=== PATIENT | female | born 1980 | race Caucasian/White ===

== ENCOUNTER 2020-02-01 17:03 | Emergency (ER) | payer BC, SELFPAY ==
--- NOTE | ~2020-02-01 | XR_ITS ---
EXAMINATION: XR foot RT min 3V DATE: 02/01/2020 17:19 INDICATION: Posttraumatic bruising and swelling at the right fifth toe TECHNIQUE: Dorsoplantar, two oblique and lateral views of the right foot were obtained. COMPARISON: None. FINDINGS: Nondisplaced oblique extra-articular fracture at the medial base of the developmentally fused right f ifth middle and distal phalanges. No fracture gap or incongruity at the articular surface. Alignment remains essentially anatomic. No other fractures identified. Joint spaces are normal. Small Achilles calcaneal spur. IMPRESSION: 1. Nondisplaced intra-articular fracture at the base of the developmentally fused right fifth middle and distal phalanges. Reviewed, dictated and finalized at location A. IMPRESSION: 1. Nondisplaced intra-articular fracture at the base of the developmentally fus ed right fifth middle and distal phalanges.
[2020-02-01 17:07] VITALS: BP 128/74; PULSE 65; RESP 20; TEMP 36.8; O2SAT 97
--- NOTE | 2020-02-01 17:08 | ED.LOWEXIN ---
HPI - Extremity Injury (Lower) General Chief Complaint: Extremity Injury, Lower Stated Complaint: foot injury Time Seen by Provider: 02/01/20 17:04 Source: RN notes reviewed History of Present Illness HPI Narrative: Patient presents emergency department from home for right toe pain. Patient states that 2 days ago she struck her right toe on a stool causing the right fifth toe to bend awkwardly. She states that since that time she is had pain and swelling to this toe with bruising noted. States pain is at the base of the fourth and fifth toe on the right denies any other trauma or injury. States she last took pain medication yesterday denies any numbness or tingling Related Data Allergies Allergy/AdvReac Type Severity Reaction Status Date / Time No Known Allergies Allergy Verified 02/01/20 17:09 Review of Systems Review of Systems: Narrative: Gen.: Denies fevers or chills Musculoskeletal: See HPI Neuro: Denies numbness, tingling, weakness Skin: Denies rash Endo: Denies DM PMFSH Past Medical History Medical History UTI (urinary tract infection) Social History Social History Smoking status: Never smoker Gender identity (if verbalized by the patient): Female Exam Narrative: Exam Narrative: APPEARANCE: No acute distress, nontoxic, resting in bed Eyes: EOMI HEENT: Normocephalic, atraumatic, RESPIRATORY: No respiratory distress MUSCULOSKELETAl: Tender to palpation over the right fifth toe and at the base of the right fifth and fourth digit with ecchymosis present remainder the foot is nontender palpation dorsalis pedis pulse 2+, neurovascular tach NEURO: Awake and alert. Following commands, speech normal, no focal deficits SKIN:: Warm, dry. Normal Color no rash or lesions Course Course Emergency Course: Discussed with patient results of workup and diagnosis. Discussed need for follow-up with primary care, proper use of medication, and reasons to return to the emergency department. Patient understands and agrees to current treatment plan Vital Signs Vital signs: Vital Signs Temperature 98.2 F 02/01/20 17:07 Pulse Rate 65 02/01/20 17:07 Respiratory Rate 20 02/01/20 17:07 Blood Pressure 128/74 02/01/20 17:07 Pulse Oximetry 97 02/01/20 17:07 Temperature 98.2 F 02/01/20 17:07 Pulse Rate 65 02/01/20 17:07 Respiratory Rate 20 02/01/20 17:07 Blood Pressure 128/74 02/01/20 17:07 Pulse Oximetry 97 02/01/20 17:07 MDM - Extremity Injury (Lower) Imaging Data Radiologist's impression: ITS Impressions Foot X-Ray 02/01/20 17:23 IMPRESSION: 1. Nondisplaced intra-articular fracture at the base of the developmentally fused right fifth middle and distal phalanges. Discharge Plan Discharge Clinical Impression: Closed fracture of phalanx of right fifth toe Patient Disposition: Home, Self-Care Condition: Stable Instructions: Antibiotic Form, Toe Fracture (ED) Additional Instructions: Return for increasing pain numbness or tingling in the extremities or any other symptoms of concern Prescriptions: New ibuprofen [IBU] 600 mg tablet 600 mg PO Q6H PRN (Reason: pain) Qty: 20 RF: 0 No Action ondansetron 4 mg tablet,disintegrating 4 mg PO Q6H PRN (Reason: nausea and vomiting) Qty: 10 RF: 0 naproxen 500 mg tablet 500 mg PO BID PRN (Reason: pain) Qty: 20 RF: 0 sulfamethoxazole-trimethoprim [Bactrim DS] 800-160 mg tablet 1 tablet PO Q12H 3 Days Qty: 6 RF: 0 phenazopyridine [Pyridium] 200 mg tablet 200 mg PO TID PRN (Reason: pain) Qty: 6 RF: 0 ondansetron 4 mg tablet,disintegrating 4 mg PO Q6H PRN (Reason: nausea and vomiting) Qty: 7 RF: 0 Follow-up/Referrals: Jordyn,Jessica Shultz MD [Primary Care Provider] - 2 Days Time of Disposition: 17:37
== END 2020-02-01 17:47 | disposition home or self-care (01) ==
PROVIDERS: Emergency Provider Emergency Medicine; PCP Family Medicine
DX: S92.534A Nondisplaced fracture of distal phalanx of right lesser toe(s), initial encounter for closed fracture (principal); S92.524A Nondisplaced fracture of middle phalanx of right lesser toe(s), initial encounter for closed fracture; W22.03XA Walked into furniture, initial encounter
CPT/HCPCS: 73630; 99284

== ENCOUNTER 2020-07-12 09:28 | Emergency (ER) | payer BC, SELFPAY ==
--- NOTE | ~2020-07-12 | CT_ITS ---
EXAMINATION: CT soft tissue neck w con DATE: 07/12/2020 13:05 INDICATION: Neck swelling TECHNIQUE: Computed tomography (CT) of the neck was performed with 75 mL Omnipaque-350 intravenous co ntrast. Automated exposure control and iterative reconstruction technique were employed. The dose-kam gth product was 479.87 mGy-cm. COMPARISON: None FINDINGS: Likely benign 4 mm hypodense right thyroid nodule. Submandibular and parotid glands are symmetric. T here is mild stranding in the subcutaneous fat in the submental region with 3 mildly prominent submen alex lymph nodes the largest measuring 10 mm in maximal short axis diameter. Additional mildly promine nt bilateral level 2 jugular chain lymph nodes measuring up to 10 mm in maximal short axis diameter o n the right and 9 mm on the left. No abscess or masses identified. The palatine and lingual tonsils a nd epiglottis appear normal. The deep spaces of the head and neck including the retropharyngeal space appear normal. The vasculature is patent and normal in caliber. Orbits are unremarkable. Superior me diastinum is unremarkable. Paranasal sinuses, middle ear cavities, mastoid air cells and visualized p ortions of the airway and bilateral upper lobes are clear. There are several dental restorations. No periapical erosions. Bones are unremarkable. IMPRESSION: 1. Minimal nonspecific stranding consistent with cellulitis in the overlying submental subcutaneous f at. No abscess. 2. Mild likely reactive submental and bilateral level 2 jugular chain lymphadenopathy Reviewed, dictated and finalized at location A. PAINTER IMPRESSION: 1. Minimal nonspecific stranding consistent with cellulitis in the overlying luong bmental subcutaneous fat. No abscess. 2. Mild likely reactive submental and bilateral level 2 jugular chain lymphaden opathy
[2020-07-12 09:46] VITALS: BP 134/81; PULSE 77; RESP 18; TEMP 36.4; O2SAT 100
[2020-07-12] MEDS: SODIUM CHLORIDE 0.9% IV 1,000 ML 999 ML IV CONT (11:04)
[2020-07-12] MEDS: IBUPROFEN IV 800 MG/200 ML 800 MG/200 ML BAG 400 MG IVPB (11:05)
--- NOTE | 2020-07-12 11:14 | ED.GENADULT ---
HPI - General Adult General Chief complaint: Unspecified Stated complaint: lump in throat Time Seen by Provider: 07/12/20 10:06 Source: patient Mode of arrival: ambulatory Limitations: no limitations History of Present Illness HPI narrative: Patient is a 40-year-old female who presents to emergency department for evaluation of submental swelling and pain that began over the last day patient notes that it increased drastically over the night but notes aching pain worse with touch denies any intraoral infections or pain or discomfort or any URI symptoms or similar occurrence in the past presents in no distress does not appear uncomfortable and has not taken anything for symptoms Related Data Home Medications Medication Instructions Recorded Confirmed alprazolam 07/12/20 Allergies Allergy/AdvReac Type Severity Reaction Status Date / Time No Known Allergies Allergy Verified 07/12/20 09:52 Review of Systems Review of Systems: All systems reviewed & are unremarkable except as noted in HPI and below PMFSH Past Medical History Medical History UTI (urinary tract infection) Surgical History Surgical History H/O tubal ligation History of endometrial ablation Hx of cholecystectomy Social History Social History Smoking status: Never smoker Gender identity (if verbalized by the patient): Female Exam Narrative: Exam Narrative: GENERAL: Well-appearing, well-nourished, and in no acute distress. HEAD: Normocephalic, atraumatic. Patient with firm tender area in the submental left side region there is no fluctuance no erythema and no wounds EYES: PERRLA and EOMI. ENT: Nares clear, no rhinorrhea or epistaxis. Mucous membranes moist. Oropharynx without tonsillar hypertrophy exudate or other lesions. No lesions in the oropharynx there are dental caries but no erythema floor the mouth is soft nontender uvula is midline no trismus or drooling NECK: Supple. No adenopathy or masses. CHEST: Clear to auscultation. No respiratory distress. No wheezes rales or rhonchi HEART: Regular rate and rhythm. No murmur heard. EXTREMITIES: Normal range of motion. No edema. SKIN: Warm, dry, no rash. NEURO: No focal deficits. Alert and oriented x3. PSYCH: Normal mood and affect. Course Course Emergency Course: Discussed case with patient who is aware of case findings and treatment plan will be placed on antibiotics discharged home patient afebrile nontoxic-appearing no distress unsure etiology to her symptoms will be referred to ENT given reasons to return. Vital Signs Vital signs: Vital Signs Temperature 97.5 F L 07/12/20 09:46 Pulse Rate 77 07/12/20 09:46 Respiratory Rate 18 07/12/20 09:46 Blood Pressure 134/81 07/12/20 09:46 Pulse Oximetry 100 07/12/20 09:46 Temperature 97.5 F L 07/12/20 09:46 Pulse Rate 77 07/12/20 09:46 Respiratory Rate 18 07/12/20 09:46 Blood Pressure 134/81 07/12/20 09:46 Pulse Oximetry 100 07/12/20 09:46 Medical Decision Making MDM Narrative Medical decision making narrative: Case discussed with patient who agrees to follow with ENT will be discharged home given reasons to return afebrile nontoxic-appearing no distress Vital Signs Vital Signs: Vital Signs Temperature 97.5 F L 07/12/20 09:46 Pulse Rate 77 07/12/20 09:46 Respiratory Rate 18 07/12/20 09:46 Blood Pressure 134/81 07/12/20 09:46 Pulse Oximetry 100 07/12/20 09:46 Temperature 97.5 F L 07/12/20 09:46 Pulse Rate 77 07/12/20 09:46 Respiratory Rate 18 07/12/20 09:46 Blood Pressure 134/81 07/12/20 09:46 Pulse Oximetry 100 07/12/20 09:46 Lab Data Result diagrams: 07/12/20 11:01 07/12/20 12:14 Labs: Lab Results 07/12/20 07/12/20 Range/Units 11:01 12:14 WBC 5.1 (4
[2020-07-12 11:39] LABS: Basophils Percent Auto 0.6 % (0.2-1.2); Eosinophils Absolute Auto 0.1 K/mm3 (0-0.3); Eosinophils Percent Auto 1.4 % (0-4.4); Hematocrit 40.5 % (37.0-47.0); Hemoglobin 13.8 g/dL (12.0-15.0); Immature Granulocyte Absolute 0.01 K/mm3 (0.00-0.031); Immature Granulocyte Percent A 0.2 % (0-0.5); Lymphocytes Absolute Auto 1.83 K/mm3 (0.9-3.2); Mean Corpuscular HGB Conc 34.1 g/dl (32-36); Mean Corpuscular Hemoglobin 30.3 pg (26-34); Mean Platelet Volume 10.2 fl (7.4-10.4); Monocytes Absolute Auto 0.3 K/mm3 (0.1-0.6); Monocytes Percent Auto 5.7 % (2.6-8.5); Neutrophils Absolute Auto 2.9 K/mm3 (1.3-6.7); Neutrophils Percent Auto 56.1 % (45.5-73.1); Platelet Count Result 369 k/mm3 (150-375); Red Blood Count 4.55 M/mm3 (4.2-5.4); Red Cell Distribution Width 12.5 % (11.5-14.5); White Blood Count 5.1 K/mm3 (4.5-10.0)
[2020-07-12 12:50] LABS: Anion Gap 6 mmol/L (8-16); Blood Urea Nitrogen 10 mg/dL (7-17); Calcium 8.7 mg/dL (8.4-10.2); Carbon Dioxide 28 mmol/L (22-30); Chloride 106 mmol/L (98-107); Estimated CRCL calculation 93 ml/min; Estimated Glomerular Filt Rate > 60; Glucose 88 mg/dL (65-105); Potassium 4.3 mmol/L (3.4-5.0); Sodium 140 mmol/L (137-145)
[2020-07-12 14:15] VITALS: BP 115/75; PULSE 71; RESP 18; O2SAT 100
== END 2020-07-12 14:26 | disposition home or self-care (01) ==
PROVIDERS: Emergency Medicine Emergency Medical Services; Emergency Provider Emergency Medicine; PCP Family Medicine
DX: R22.0 Localized swelling, mass and lump, head (principal); Z87.440 Personal history of urinary (tract) infections
CPT/HCPCS: 36415; 70491; 80048; 85025; 96365; 99284; J1741; J7030; Q9967

== ENCOUNTER 2021-05-15 11:57 | Emergency (ER) | payer BC, SELFPAY ==
--- NOTE | ~2021-05-15 | XR_ITS ---
EXAMINATION: XR foot RT min 3V EXAM DATE: 05/15/2021 12:41 INDICATION: Pain prior fracture/pain under heel 4-5th toes. Initial encounter. TECHNIQUE: Right foot dorsoplantar, lateral and oblique projections obtained and reviewed. Compariso n is made to prior examination from 02/01/2020. FINDINGS: Right metatarsal bones unremarkable. There are no acute fractures or dislocations identifi ed. There is no subcutaneous gas. The soft tissue is unremarkable. There are no radiopaque foreig n bodies. IMPRESSION: 1. XR foot RT min 3V exam without acute osseous findings. Reviewed, dictated and finalized at location A.
[2021-05-15 12:07] VITALS: BP 136/81; PULSE 82; RESP 18; TEMP 36.9; O2SAT 99
--- NOTE | 2021-05-15 12:18 | ED.LOWEXIN ---
HPI - Extremity Injury (Lower) General Chief Complaint: Extremity Injury, Lower Stated Complaint: Right Foot Pain,Staff Infection Time Seen by Provider: 05/15/21 12:30 Source: patient and RN notes reviewed Mode of arrival: ambulatory Limitations: no limitations History of Present Illness HPI Narrative: 40-year-old female presents with concern for right foot pain. In a separate complaint she also reports a red raised bumps that she is concerned could be a staph infection. Regarding her foot, she reports that she broke the foot approximately 6 months ago reports she had it x-rayed, confirming a fracture. She reports she never had follow-up x-rays and reinjured the foot approximately 2 to 3 months after the first injury. She reports pain resolved from those injuries, however yesterday she began having pain at the bottom of her foot that radiates up the back of her foot and ankle. She denies any new injury or trauma. In a separate complaint she reports history of staph infections, for once which she was hospitalized. Reports a red bump that she noticed on Wednesday on her right hip. Reports that area is warm, swollen. Reports it has gotten slightly smaller. complaint: foot injury Related Data Home Medications Medication Instructions Recorded Confirmed alprazolam 0.5 mg PO PRN PRN 07/12/20 05/15/21 Allergies Allergy/AdvReac Type Severity Reaction Status Date / Time amoxicillin [From Augmentin] AdvReac Intermediate Gastrointestinal Verified 05/15/21 12:18 Upset clavulanic acid AdvReac Intermediate Gastrointestinal Verified 05/15/21 12:18 [From Augmentin] Upset Review of Systems Review of Systems: CONSTITUTIONAL: Denies malaise, chills, sweats, or fever. CARDIOVASCULAR: Denies chest pain, palpitations, or edema. RESPIRATORY: Denies cough or dyspnea. SKIN: Reports a red raised bump on her right hip MUSCULOSKELETAL: Reports right foot pain NEUROLOGIC: Denies numbness, weakness All systems reviewed & are unremarkable except as noted in HPI and below PMFSH Past Medical History Medical History UTI (urinary tract infection) Surgical History Surgical History H/O tubal ligation History of endometrial ablation Hx of cholecystectomy Social History Social History Smoking status: Never smoker Gender identity (if verbalized by the patient): Female Comments At time of signature, agree with nursing past medical, surgical, social and family history. There is no relevant family history pertinent to the presenting complaint Exam Narrative: GENERAL: Well-appearing, well-nourished, and in no acute distress. HEAD: Normocephalic, atraumatic. EYES: PERRLA, conjunctivae clear, ENT: Mucous membranes moist. NECK: Supple. No lymphadenopathy CHEST: Clear to auscultation. No respiratory distress. HEART: Regular rate and rhythm. SKIN: Warm, dry. 1 cm raised red boil noted to the right hip without drainage, minimal fluctuation, no surrounding erythema, edema, induration. MUSC: Grossly normal, sensation, range of motion in the right foot, digits. No edema. NEURO: Alert and oriented x3. PSYCH: Normal mood and affect Course Course Emergency Course: Patient is aware of diagnosis, understands and agrees to treatment plan. Anticipatory guidance given. Patient agrees to follow-up as directed and is aware of reasons to seek care at the emergency department. Portions of this record may have been created with voice recognition software Vital Signs Vital signs: Vital Signs Temperature 98.4 F 05/15/21 12:07 Pulse Rate 82 05/15/21 12:07 Respiratory Rate 18 05/15/21 12:07 Blood Pressure 136/81 05/15/21 12:07 Pulse Oximetry 99 05/15/21 12:07 Temperature 98.4 F 05/15/21 12:07 Pulse Rate 82 05/15/21 12:07 Respiratory Rate 18 05/15/21 12:0
== END 2021-05-15 13:11 | disposition home or self-care (01) ==
PROVIDERS: Emergency Provider Nurse Practitioner; PCP Family Medicine
DX: M79.672 Pain in left foot (principal); L02.425 Furuncle of right lower limb; F41.9 Anxiety disorder, unspecified; Z86.19 Personal history of other infectious and parasitic diseases
CPT/HCPCS: 73630; 99213; G0463

== ENCOUNTER 2021-07-19 16:13 | Emergency (ER) | payer BC, SELFPAY ==
--- NOTE | ~2021-07-19 | CT_ITS ---
EXAMINATION: CT soft tissue neck w con DATE: 07/19/2021 20:08 INDICATION: Neck pain and swelling. TECHNIQUE: Computed tomography (CT) of the neck was performed with 75 mL Omnipaque-350 intravenous co ntrast. Automated exposure control and iterative reconstruction technique were employed. The dose-kam gth product was 552.59 mGy-cm. COMPARISON: Neck CT 07/12/2020 FINDINGS: There are no pathologically enlarged lymph nodes. The palatine tonsils are normal. The epig lottis is normal. There is a 6 mm right thyroid nodule, likely not clinically significant. A skin mar ker overlies the right neck. The paranasal sinuses are clear. There is mild cervical spondylosis. The re are restorations of many of the teeth. There are periapical lucencies around tooth 29 with breech of the buccal cortex of the alveolar process. No abscess in the adjacent soft tissue. IMPRESSION: 1. Periapical lucencies around tooth 29, worsened from 07/12/20. Reviewed, dictated and finalized at location A. M SETTER
[2021-07-19 16:31] VITALS: BP 141/74; PULSE 78; RESP 18; TEMP 37; O2SAT 99
--- NOTE | 2021-07-19 17:14 | ECG_ITS ---
Measurements Intervals Swain Rate: 76 P: 44 GA: 149 QRS: 9 QRSD: 82 T: 11 QT: 345 QTc: 390 Interpretive Statements SINUS RHYTHM WITH MARKED SINUS ARRHYTHMIA DELAYED PRECORDIAL R/S TRANSITION BORDERLINE T WAVE ABNORMALITY- ANT/INF LEADS BASELINE ARTIFACT- I, II, AVR, AVL BORDERLINE ECG Electronically Signed On 07-19-2021 20:17:54 [employer] by Vickey Connolly D.O.
--- NOTE | 2021-07-19 17:14 | ED.GENADULT ---
HPI - General Adult General Chief complaint: Dental/Oral Stated complaint: dental pain/abcess Time Seen by Provider: 07/19/21 16:52 Source: patient and RN notes reviewed Mode of arrival: ambulatory Limitations: no limitations History of Present Illness HPI narrative: This is a 41 year old female who presents for evaluation right throat pain and dizziness. She has not felt well for a few days. She reports fatigue, dizziness, and nausea . She is also complaining right neck and jaw pain. Three months ago she was given antibiotics for dental abscess. She has been unable to return for reevaluation and dental work due to cost. For the past few days she has not felt well. She reports dizziness, pain with swallowing on the right and right neck swelling. She states her daughter saw some white pockets in her throat. She also report swelling in her right lower gum with pus drainage. Denies fever or chills. She just feels off. Related Data Home Medications Medication Instructions Recorded Confirmed alprazolam 0.5 mg PO PRN PRN 07/12/20 05/15/21 Allergies Allergy/AdvReac Type Severity Reaction Status Date / Time amoxicillin [From Augmentin] AdvReac Intermediate Gastrointestinal Verified 05/15/21 12:18 Upset clavulanic acid AdvReac Intermediate Gastrointestinal Verified 05/15/21 12:18 [From Augmentin] Upset Review of Systems Review of Systems: All systems reviewed & are unremarkable except as noted in HPI and below Constitutional: Constitutional: Denies chills, Reports fatigue and Denies fever(s) ENT: Reports dysphagia and Reports sore throat Cardiovascular: Cardiovascular: Denies chest pain Respiratory: Respiratory: Denies dyspnea Gastrointestinal: Gastrointestinal: Reports nausea PMFSH Past Medical History Medical History UTI (urinary tract infection) Surgical History Surgical History H/O tubal ligation History of endometrial ablation Hx of cholecystectomy Social History Social History Smoking status: Never smoker Gender identity (if verbalized by the patient): Female Exam Const: General: no acute distress and alert Orientation/consciousness: patient oriented x3 HENMT: Head: normocephalic and atraumatic Ears: TM's normal bilaterally Face and sinus: sinuses nontender and face symmetric Mouth: Yes lip normal, Yes tongue normal, Yes moist mucous membranes, No abnormal TMJ and No trismus Teeth and gingiva: abnormal tooth and associated gingiva (at teeth 27 broken - small area of gum swelling with mild bleed), fair dentition and other (soft floor of tongue) Throat: posterior oropharynx normal, tonsils normal and uvula midline Eyes: EOM: EOMs intact bilaterally Neck: Other: right anterior neck tenderness to palpation, no significant swelling or redness Resp: Effort & Inspection: normal respiratory effort and no retractions Auscultation: clear to auscultation bilaterally Cardio: Rate: regular rate Rhythm: regular rhythm Heart sounds: no murmurs GI: GI Palp: Yes Soft to palpation, No Tenderness to palpation present (GI) and No Guarding due to palpation present (GI) Auscultation: normal bowel sounds Neuro: General: patient oriented x3, moves all extremities and CN's II-XI intact bilaterally Psych: Mental Status: mental status grossly normal Affect: normal affect Course Reevaluation(s) Reevaluation #1: CT performed to rule out abscess to explain pain with swallowing and neck pain given her complaint. I discussed with patient CT . no abscess found or significant abnormalities to explain her right neck pain. Neuro exam normal. Steady gait Date: 07/19/21 Time: 20:47 Vital Signs Vital signs: Vital Signs Temperature 98.6 F 07/19/21 16:31 Pulse Rate 78 07/19/21 16:31 Respiratory Rate 18 07/19/21 16:31 Blood
[2021-07-19 17:45] LABS: Basophils Percent Auto 0.5 % (0.2-1.2); Eosinophils Absolute Auto 0.1 K/mm3 (0-0.3); Eosinophils Percent Auto 0.7 % (0-4.4); Hematocrit 43.1 % (37.0-47.0); Hemoglobin 14.1 g/dL (12.0-15.0); Immature Granulocyte Absolute 0.02 K/mm3 (0.00-0.031); Immature Granulocyte Percent A 0.3 % (0-0.5); Lymphocytes Absolute Auto 1.81 K/mm3 (0.9-3.2); Lymphocytes Percent Auto 23.8 % (18.3-44.2); Mean Corpuscular HGB Conc 32.7 g/dl (32-36); Mean Corpuscular Hemoglobin 30.6 pg (26-34); Mean Corpuscular Volume 93.5 fl (80-100); Mean Platelet Volume 8.8 fl (7.4-10.4); Monocytes Absolute Auto 0.5 K/mm3 (0.1-0.6); Monocytes Percent Auto 6.7 % (2.6-8.5); Neutrophils Absolute Auto 5.2 K/mm3 (1.3-6.7); Platelet Count Result 379 k/mm3 (150-375); Red Blood Count 4.61 M/mm3 (4.2-5.4); Red Cell Distribution Width 12.6 % (11.5-14.5); White Blood Count 7.6 K/mm3 (4.5-10.0)
[2021-07-19 17:59] LABS: Alanine Aminotransferase 22 U/L (4-35); Albumin Level 4.8 g/dL (3.5-5.1); Alkaline Phosphatase 75 U/L (38-126); Anion Gap 11 mmol/L (8-16); Aspartate Amino Transferase 25 U/L (14-36); Bilirubin,Total 0.4 mg/dL (0.2-1.3); Blood Urea Nitrogen 8 mg/dL (7-17); Calcium 9.7 mg/dL (8.4-10.2); Carbon Dioxide 27 mmol/L (22-30); Chloride 102 mmol/L (98-107); Estimated CRCL calculation 82 ml/min; Estimated Glomerular Filt Rate > 60; Glucose 102 mg/dL (65-110); Potassium 4.1 mmol/L (3.4-5.0); Sodium 140 mmol/L (137-145)
[2021-07-19 18:12] LABS: Monoscreen Negative (Negative); Negative Monotest Control Negative (Negative); Positive Monotest Control Positive (Positive)
--- NOTE | 2021-07-19 19:08 | PC.NURSE ---
Report received from SERGEY Mccall. Assumed care of patient at this time.
[2021-07-19 19:24] VITALS: BP 123/78; PULSE 79; RESP 17; TEMP 36.6; O2SAT 100
--- NOTE | 2021-07-19 19:45 | PC.NURSE ---
Patient being taken to CT via w/c.
== END 2021-07-19 21:15 | disposition home or self-care (01) ==
PROVIDERS: Emergency Provider General Practice; PCP Family Medicine
DX: K04.7 Periapical abscess without sinus (principal); E04.1 Nontoxic single thyroid nodule; M54.2 Cervicalgia; Z87.440 Personal history of urinary (tract) infections; Z98.51 Tubal ligation status; Z90.49 Acquired absence of other specified parts of digestive tract; Z88.0 Allergy status to penicillin; Z88.8 Allergy status to other drugs, medicaments and biological substances
CPT/HCPCS: 36415; 70491; 80053; 81025; 85025; 86308; 87081; 87880; 93005; 99284; Q9967

== ENCOUNTER 2021-08-11 12:47 | Emergency (ER) | payer BC, SELFPAY ==
--- NOTE | ~2021-08-11 | XR_ITS ---
XR chest 1V portable DATE: 08/11/2021 15:05 INDICATION: Cough TECHNIQUE: Portable AP chest on 08/11/2021 at 1459 hours COMPARISON: 09/20/2013 PA and lateral chest FINDINGS: Normal heart size. No pulmonary infiltrate or consolidation, pleural effusion or pulmonary vascular congestion or pneumothorax is detected. The gala appear mildly prominent compared to 09/20/2013. Hilar mass lesion or adenopathy is not exclude d. Consider CT thorax with IV contrast material for further evaluation. Osteopenia is suggested. IMPRESSION: Interval mild prominence of the gala since 2013; consider CT thorax with IV contrast mate rial to exclude hilar mass lesion or adenopathy Reviewed, dictated and finalized at location A. ER REP IMPRESSION: Interval mild prominence of the gala since 2013; consider CT thorax with IV contrast material to exclude hilar mass lesion or adenopathy
[2021-08-11 12:53] VITALS: BP 151/88; PULSE 107; RESP 22; TEMP 39; O2SAT 98
[2021-08-11 14:54] VITALS: BP 134/81; PULSE 95; RESP 18; TEMP 38.9; O2SAT 99
[2021-08-11 15:04] VITALS: O2SAT 99
--- NOTE | 2021-08-11 15:04 | ED.URI ---
HPI - URI/Sore Throat General Chief Complaint: Shortness of Breath/Dyspnea Stated Complaint: sob/fever/cough Time Seen by Provider: 08/11/21 14:49 Source: patient Mode of arrival: ambulatory Limitations: no limitations History of Present Illness HPI Narrative: Patient is a 41-year-old female complaining of cough, nasal congestion, body aches, fatigue, headache, fever and chills that started 3 days ago. Patient states that she was exposed to Covid, one of the family members tested positive. Patient states that she took home Covid test and it was negative. Related Data Home Medications Medication Instructions Recorded Confirmed alprazolam 0.5 mg PO PRN PRN 07/12/20 08/11/21 Allergies Allergy/AdvReac Type Severity Reaction Status Date / Time amoxicillin [From Augmentin] AdvReac Intermediate Gastrointestinal Verified 05/15/21 12:18 Upset clavulanic acid AdvReac Intermediate Gastrointestinal Verified 05/15/21 12:18 [From Augmentin] Upset Review of Systems Review of Systems: All systems reviewed & are unremarkable except as noted in HPI and below Constitutional: Constitutional: Denies body ache(s), Denies excessive sweating, Denies lethargy, Denies weakness and Denies weight loss Eyes: Eyes: Denies blurry vision, Denies change in vision and Denies loss of vision ENT: Denies dizziness, Denies ear discharge, Denies headache(s), Denies lip swelling, Denies epistaxis, Denies nasal congestion, Denies neck pain, Denies throat swelling and Denies tongue swelling Cardiovascular: Cardiovascular: Denies chest pain, Denies chest pain at rest, Denies chest pain with activity, Denies diaphoresis, Denies rapid heart rate, Denies edema, Denies irregular heart rhythm, Denies lightheadedness, Denies palpitations and Denies dyspnea on exertion Respiratory: Respiratory: Denies chest congestion, Denies hemoptysis and Denies dyspnea on exertion Gastrointestinal: Gastrointestinal: Denies abdominal pain, Denies melena, Denies hematochezia, Denies diarrhea, Denies nausea, Denies vomiting and Denies hematemesis Musculoskeletal: Musculoskeletal: Denies abnormal gait, Denies deformity, Denies joint swelling, Denies limited range of motion, Denies neck pain and Denies numbness Neurologic: Denies Abnormal speech present, Denies abnormal gait, Denies confusion, Denies dizziness, Denies focal weakness, Denies loss of vision, Denies numbness, Denies Other visual disturbances, Denies Sensory deficit (Neuro) and Denies weakness Psychiatric: Psychiatric: Denies confusion, Denies depression, Denies auditory hallucinations, Denies homicidal ideation and Denies suicidal ideation Endocrine: Endocrine: Denies cold intolerance, Denies excessive sweating, Denies fatigue, Denies heat intolerance and Denies palpitations Hematologic/Lymphatic: Hematologic/Lymphatic: Denies easy bleeding and Denies easy bruising Allergic/Immunologic: Allergic/Immunologic: Denies lip swelling, Denies throat swelling and Denies tongue swelling PMFSH Past Medical History Medical History UTI (urinary tract infection) Surgical History Surgical History H/O tubal ligation History of endometrial ablation Hx of cholecystectomy Social History Social History Smoking status: Never smoker Gender identity (if verbalized by the patient): Female Exam Const: General: cooperative, healthy appearing, comfortable, no acute distress, well developed, alert and awake; No confusion Orientation/consciousness: oriented to person, oriented to place, oriented to time, patient oriented x3 and No confusion Limitations: no limitations HENMT: Head: normal to inspection, normocephalic and atraumatic Ears: hearing grossly normal bilaterally, TM normal on the right and TM normal on the left General nose exam: Normal external nose
[2021-08-11] MEDS: IBUPROFEN SUSPENSION 200 MG/10 ML UDC 600 MG PO (16:08)
[2021-08-11 16:45] VITALS: BP 117/78; PULSE 94; O2SAT 99
[2021-08-11 19:11] VITALS: BP 134/90; RESP 18; O2SAT 99
[2021-08-13 03:58] LABS: SARS-CoV-2 RNA PCR Positive
== END 2021-08-11 19:16 | disposition home or self-care (01) ==
PROVIDERS: Emergency Provider Emergency Medicine; PCP Family Medicine
DX: U07.1 COVID-19 (principal); J06.9 Acute upper respiratory infection, unspecified; Z87.440 Personal history of urinary (tract) infections
CPT/HCPCS: 71045; 87804; 99283; A9270; C9803; U0003; U0005

== ENCOUNTER 2021-08-25 12:37 | Outpatient (CLI) | payer BC, SELFPAY ==
--- NOTE | ~2021-08-25 | CT_ITS ---
EXAMINATION: CT diagnostic chest w con DATE: 08/25/2021 13:04 INDICATION: Abnormal findings on diagnostic imaging TECHNIQUE: Transaxial computed tomographic images of the chest were obtained after the administration of 75 cc of Omnipaque 350 intravenous contrast. The dose-length product (DLP) was 244.01 mGy-cm. Ite rative reconstruction was used. COMPARISON: 07/30/2019 FINDINGS: A stable 3 mm nodule of the right middle lobe is consistent with old granulomatous disease. There is mild dependent atelectasis of the lungs. No focal airspace opacity is identified. There is no pleural effusion or pneumothorax. No pathologically enlarged thoracic lymph nodes are identified. The heart size is normal. The gallbladder is surgically absent. There is mild thoracic spondylosis. IMPRESSION: 1. No acute cardiopulmonary abnormality. Reviewed, dictated and finalized at location F. ERY CUTTER MACHINE
== END 2021-08-25 12:38 | disposition home or self-care (01) ==
LOC: ANHIMG 12:41
PROVIDERS: PCP Family Medicine; Visit Provider Family Medicine
DX: R91.8 Other nonspecific abnormal finding of lung field (principal)
CPT/HCPCS: 71260; Q9967

== ENCOUNTER 2022-08-13 22:29 | Emergency (ER) | payer BC, SELFPAY ==
--- NOTE | ~2022-08-13 | XR_ITS ---
EXAMINATION: XR chest 2V DATE: 08/13/2022 22:52 INDICATION: Chest tightness. TECHNIQUE: Frontal and lateral views of the chest were obtained. COMPARISON: Chest single view 08/11/2021, chest CT 08/25/2021 FINDINGS: The chest demonstrates clear lungs without pneumonia, pleural effusion, or pneumothorax. Th e heart size is normal. Surgical clips in the right upper quadrant are likely from cholecystectomy. IMPRESSION: 1. No acute cardiopulmonary disease. Reviewed, dictated and finalized at location A. MENT MANAGEMENT CONSULTANT
[2022-08-13 22:34] VITALS: BP 134/78; PULSE 83; RESP 18; O2SAT 99
--- NOTE | 2022-08-13 22:38 | ECG_ITS ---
Measurements Intervals [place] Rate: 76 P: 48 WA: 159 QRS: 7 QRSD: 88 T: 11 QT: 374 QTc: 422 Interpretive Statements SINUS RHYTHM WITH SINUS ARRHYTHMIA LOW-VOLTAGE QRS WITH POOR PRECORDIAL R-WAVE PROGRESSION COMPARED TO ECG 07/19/2021 17:27:24 NO SIGNIFICANT CHANGES Electronically Signed On 08-14-2022 14:46:23 AIR SAW OPERATOR by Chema Espinoza M.D.
[2022-08-13 22:47] LABS: Basophils Absolute Auto 0.1 K/mm3 (0.0-0.1); Basophils Percent Auto 0.8 % (0.2-1.2); Eosinophils Percent Auto 0.6 % (0-4.4); Hematocrit 39.2 % (37.0-47.0); Hemoglobin 13.1 g/dL (12.0-15.0); Immature Granulocyte Absolute 0.02 K/mm3 (0.00-0.031); Immature Granulocyte Percent A 0.3 % (0-0.5); Lymphocytes Absolute Auto 2.61 K/mm3 (0.9-3.2); Lymphocytes Percent Auto 41.6 % (18.3-44.2); Mean Corpuscular HGB Conc 33.4 g/dl (32-36); Mean Corpuscular Hemoglobin 30.7 pg (26-34); Mean Corpuscular Volume 91.8 fl (80-100); Mean Platelet Volume 9.1 fl (7.4-10.4); Monocytes Absolute Auto 0.3 K/mm3 (0.1-0.6); Monocytes Percent Auto 5.1 % (2.6-8.5); Neutrophils Absolute Auto 3.2 K/mm3 (1.3-6.7); Neutrophils Percent Auto 51.6 % (45.5-73.1); Platelet Count Result 347 k/mm3 (150-375); Red Blood Count 4.27 M/mm3 (4.2-5.4); Red Cell Distribution Width 12.5 % (11.5-14.5); White Blood Count 6.3 K/mm3 (4.5-10.0)
[2022-08-13 22:56] LABS: Alanine Aminotransferase 28 U/L (6-35); Albumin Level 4.7 g/dL (3.5-5.1); Alkaline Phosphatase 63 U/L (38-126); Anion Gap 8 mmol/L (8-16); Aspartate Amino Transferase 27 U/L (14-36); Bilirubin,Total 0.4 mg/dL (0.2-1.3); Blood Urea Nitrogen 13 mg/dL (7-17); Calcium 9.6 mg/dL (8.4-10.2); Carbon Dioxide 27 mmol/L (22-30); Chloride 104 mmol/L (98-107); Estimated CRCL calculation 82 ml/min; Estimated Glomerular Filt Rate > 60; Glucose 99 mg/dL (65-110); Lipase 153 U/L (23-300); Potassium 3.6 mmol/L (3.4-5.0); Sodium 139 mmol/L (137-145)
[2022-08-13 22:57] LABS: INR 1.1; Prothrombin Time 13.4 Seconds (11.1-14.7)
[2022-08-13 22:58] LABS: Partial Thromboplastin Time 27.4 SECONDS (22.3-36.8)
[2022-08-13 23:07] LABS: Troponin I < 0.012 ng/mL (0.000-0.034)
[2022-08-13] MEDS: SODIUM CHLORIDE 0.9% IV 1,000 ML 999 ML IV CONT (23:36)
--- NOTE | 2022-08-13 23:37 | ED.CHESTPAIN ---
HPI - Chest Pain General Chief Complaint: Chest Pain Stated Complaint: CHEST TIGHTNESS, DIZZY Time Seen by Provider: 08/13/22 22:41 Source: patient, EMS, RN notes reviewed and old records reviewed Mode of arrival: EMS Limitations: no limitations History of Present Illness HPI narrative: This is a 42 year old female with history of anxiety who presents for evaluation of dizziness and chest tightness. She has noticed for 1 week that she has left chest tightness with palpitations when she lays flat. She also reports dizziness when she gets up. Tonight she was driving when she felt clammy and she felt left chest tightness. She took one of her alprazolam tablets. She did not feel better so she called 911. She also reported shortness of breath at that time. She denies chest tightness of dizziness now. She denies URI symptoms. She denies leg swelling but she reports intermittent calf pain for a long time. Related Data Home Medications Medication Instructions Recorded Confirmed alprazolam 1 mg tablet 0.5 mg PO PRN PRN Anxiety 07/12/20 08/11/21 Allergies Allergy/AdvReac Type Severity Reaction Status Date / Time amoxicillin [From Augmentin] AdvReac Intermediate Gastrointestinal Verified 05/15/21 12:18 Upset clavulanic acid AdvReac Intermediate Gastrointestinal Verified 05/15/21 12:18 [From Augmentin] Upset Review of Systems Constitutional: Constitutional: Denies weakness Cardiovascular: Cardiovascular: Reports chest pain, Denies syncope, Reports rapid heart rate, Denies irregular heart rhythm, Denies leg edema and Denies dyspnea Respiratory: Respiratory: Denies chest congestion, Denies hemoptysis, Denies excessive phlegm production and Reports dyspnea Gastrointestinal: Gastrointestinal: Denies abdominal pain, Denies hematochezia, Denies diarrhea and Denies vomiting Genitourinary: Genitourinary: Denies hematuria and Denies dysuria Musculoskeletal: Musculoskeletal: Denies joint swelling, Denies loss of height and Denies muscle weakness Neurologic: Denies syncope, Denies focal weakness and Denies weakness Endocrine: Endocrine: Reports polydipsia [facility] Past Medical History Medical History (Updated 08/14/22 @ 01:58 by Sapna Tijerina MD) Anxiety UTI (urinary tract infection) Surgical History Surgical History H/O tubal ligation History of endometrial ablation Hx of cholecystectomy Social History Social History Smoking status: Never smoker Gender identity (if verbalized by the patient): Female Exam Narrative: GENERAL: Well-appearing, well-nourished, and in no acute distress. HEAD: Normocephalic, atraumatic EYES: PERRLA and EOMI, conjunctiva clear without discharge THROAT:Mucous membranes moist, Oropharynx normal without erythema, exudate, peritonsillar swelling or fluctuance NECK: Supple, without lymphadenopathy or mass RESPIRATORY: No respiratory distress, Airway patent, Respirations non-labored, Clear to auscultation without rales, rhonchi or wheeze HEART: Regular rate and rhythm. No murmur heard. Normal peripheral pulses. ABDOMEN: Soft, nontender, nondistended, normal active bowel sounds. No masses. No rebound or guarding, No organomegaly. EXTREMITIES: No edema, normal strength with full range of motion. negative kelley's sign SKIN: Warm, dry, normal color without rash NEURO: Alert and oriented x3. CN 2-12 grossly intact. No focal deficits. PSYCH: Normal mood and affect. Neuro: Speech: No Abnormal speech present Course Reevaluation(s) Reevaluation #1: PAtient has no complaints. Labs are unremarkable. Electrolytes are normal. Negative troponin, negative d dimer. low risk DVT,PE and heart score. I have discussed with patient recommendations for follow up with PCP. She does not need to be admitted at this time. I believe she can have outpatient evaluation. Date:
[2022-08-13 23:56] LABS: Magnesium 1.8 mg/dL (1.6-2.3)
[2022-08-14] LABS: D Dimer 0.27 ug/mL (<0.48)
[2022-08-14 00:10] VITALS: BP 115/71; PULSE 66; RESP 18; O2SAT 99
[2022-08-14 00:22] LABS: Influenza A QL RT-PCR Negative (Negative); Influenza B QL RT-PCR Negative (Negative); SARS-CoV-2 RNA PCR Negative
[2022-08-14 01:21] VITALS: BP 110/70; PULSE 66; RESP 16; O2SAT 97
[2022-08-14 01:51] LABS: Troponin I < 0.012 ng/mL (0.000-0.034)
[2022-08-14 02:07] VITALS: BP 114/82; PULSE 83; RESP 16; TEMP 36.6; O2SAT 98
== END 2022-08-14 02:15 | disposition home or self-care (01) ==
PROVIDERS: Nurse Practitioner Family; Emergency Provider General Practice; PCP Family Medicine
DX: R07.89 Other chest pain (principal); R00.2 Palpitations; Z20.822 Contact with and (suspected) exposure to COVID-19; F41.9 Anxiety disorder, unspecified; Z87.440 Personal history of urinary (tract) infections
CPT/HCPCS: 36415; 71046; 80053; 83690; 83735; 84443; 84484; 85025; 85380; 85610; 85730; 87636; 93005; 96360; 99284; J7030

== ENCOUNTER 2022-08-28 05:20 | Inpatient (IN) | payer BC, SELFPAY ==
[2022-08-28] VITALS (15 sets, daily range): BP systolic 99–131; BP diastolic 54–97; PULSE 56–88; RESP 11–20; TEMP 36.3–36.5; O2SAT 96–100; BMI 34.4
--- NOTE | ~2022-08-28 | CT_ITS ---
EXAMINATION: CT abdomen pelvis w con DATE: 08/28/2022 07:02 INDICATION: Right abdominal pain. TECHNIQUE: Computed tomography (CT) of the abdomen and pelvis was performed with 100 mL Omnipaque 350 intravenous contrast. Automated exposure control and iterative reconstruction technique were employe d. The dose-length product was 960.01 mGy-cm. COMPARISON: CT abdomen and pelvis 07/30/2019, 02/22/14 FINDINGS: The visualized portions of the lung bases demonstrate mild atelectasis. No pleural effusion . The heart size is normal. No pericardial effusion. There is mild intrahepatic biliary duct dilatati on and dilatation of the common duct to 11 mm. There are changes of cholecystectomy. The spleen, panc reas, adrenal glands, and kidneys are normal. There are no dilated loops of bowel. The appendix is no rmal. There are no pathologically enlarged lymph nodes. There is physiologic fluid in the pelvis. The re is chronic bilateral hydrosalpinx. There is mild thoracolumbar spondylosis. IMPRESSION: 1. Mild intrahepatic and extrahepatic biliary duct dilatation status post cholecystectomy, worsened f rom 07/30/2019. 2. Chronic bilateral hydrosalpinx. Reviewed, dictated and finalized at location A. ND FORMING MACHINE OPERATOR IMPRESSION: 1. Mild intrahepatic and extrahepatic biliary duct dilatation status post adalgisa cystectomy, worsened from 07/30/2019. 2. Chronic bilateral hydrosalpinx.
--- NOTE | ~2022-08-28 | MR_ITS ---
EXAMINATION: MR MRCP wo/w con/w 3D wo ind DATE: 08/29/2022 07:52 INDICATION: Elevated liver function tests TECHNIQUE: Magnetic resonance imaging (MRI) of the abdomen was performed without and with 17 mL Multi neema intravenous contrast. Sequences included coronal T2-weighted SS-FSE, coronal T2-weighted FS SS- FSE, coronal T2-weighted FS FIESTA, axial T2-weighted FS FIESTA, axial T2-weighted FIESTA, sagittal T 2-weighted SS-FSE, axial T1-weighted dual-echo FSPGR, axial T2-weighted SS-FSE, axial T1-weighted LAV A, axial T2-weighted STIR FSE. Thick-slab T2-weighted FRFSE-XL images were obtained for magnetic reso nance cholangiopancreatography (MRCP). Rotating maximum intensity projection 3-D reconstructions of t he volumetric data were created by the technologist. Postcontrast sequences included a time course of axial T1-weighted LAVA. COMPARISON: CT dated 08/28/2022 and 07/30/2019 FINDINGS: ABDOMEN MRI: Heart size is normal. No pericardial or pleural effusion. 5 mm T2 hyperintense nonenhancing cyst alejandra g the cephalad margin of segment 2 of liver. Metallic magnetic dexter artifact corresponding to adalgisa cystectomy clips the gallbladder fossa. Pancreas, spleen, bilateral adrenal glands and kidneys are no rmal. Visualized portions of bowels are unremarkable with no obstruction. Fluid-filled tubular struct ure at the bilateral adnexa consistent with chronic bilateral hydrosalpinx. No pathologically enlarge d abdominal lymphadenopathy. Bones are unremarkable. ABDOMEN MRCP: The common bile duct has decreased in caliber, now measuring 7-8 mm which is similar to the baseline from the study dated 07/30/2019. The common bile duct tapers distally with no evident c holedocholithiasis. There is minimal intrahepatic biliary ductal dilation. The main pancreatic duct i s normal in caliber. IMPRESSION: 1. Common bile duct diameter has decreased to the previous baseline from 07/30/2019, now measuring 7- 8 mm and with no evident obstructing stones or masses. Reviewed, dictated and finalized at location A. SACTIONAL ATTORNEY IMPRESSION: 1. Common bile duct diameter has decreased to the previous baseline from 2018, now measuring 7-8 mm and with no evident obstructing stones or masses.
--- NOTE | 2022-08-28 05:44 | ED.GENADULT ---
HPI - General Adult General Chief complaint: Urogenital-Female Stated complaint: flank pain Time Seen by Provider: 08/28/22 05:21 Source: patient, EMS, RN notes reviewed and old records reviewed Mode of arrival: EMS Limitations: no limitations History of Present Illness HPI narrative: This is a 42 year old female who presents for evaluation of right flank pain. She woke up 3 hours ago with sudden onset right flank pain. She reports pain that is located right upper abdomen and it radiates to her right flank/back. Her pain has been so severe that she has associated nausea and vomiting. She tried taking TUMS without relief. She states her pain feels similar to gallbladder attack but she has had cholecystectomy. She finished antibiotics 2 weeks ago for a UTI, but she denies dysuria or hematuria. She denies fever or chills. She denies previous history of ovarian cyst or kidney stone. She rates her pain as 10/10. Related Data Home Medications Medication Instructions Recorded Confirmed alprazolam 1 mg tablet (Xanax) 1 mg PO PRN PRN Anxiety 07/12/20 08/28/22 Allergies Allergy/AdvReac Type Severity Reaction Status Date / Time No Known Allergies Allergy Verified 08/28/22 19:56 Review of Systems Constitutional: Constitutional: Denies weakness Cardiovascular: Cardiovascular: Denies syncope, Denies rapid heart rate, Denies irregular heart rhythm, Denies leg edema and Denies dyspnea Respiratory: Respiratory: Denies chest congestion, Denies hemoptysis, Denies excessive phlegm production and Denies dyspnea Gastrointestinal: Gastrointestinal: Reports abdominal pain, Denies hematochezia, Denies diarrhea, Reports nausea and Reports vomiting Genitourinary: Genitourinary: Denies hematuria, Denies dysuria and Reports flank pain Musculoskeletal: Musculoskeletal: Reports back pain, Denies joint swelling, Denies loss of height and Denies muscle weakness Neurologic: Denies syncope, Denies focal weakness and Denies weakness PMFSH Past Medical History Medical History Anxiety UTI (urinary tract infection) Surgical History Surgical History H/O tubal ligation History of endometrial ablation Hx of cholecystectomy Family History Family History Other Cerebrovascular accident Social History Social History Smoking status: Never smoker Second hand tobacco smoke exposure: No Alcohol intake: unknown Substance use: never Lack of Transportation: No Lack of Food: Never True Current Housing: I Have Housing Concerned About Future Housing: No Difficulty Paying Gas/Electric Bills: No Difficulty Paying for Meds: No Currently Unemployed: No Education: High School Diploma/GED Difficulty w/ Childcare or Family Care: No Gender identity (if verbalized by the patient): Female Spiritual care concerns: No Exam Const: General: alert Orientation/consciousness: patient oriented x3 Limitations: no limitations Other: patient appears to be in pain HENMT: Head: normal to inspection Eyes: EOM: EOMs intact bilaterally Resp: Effort & Inspection: normal respiratory effort Auscultation: clear to auscultation bilaterally Cardio: Rate: regular rate Rhythm: regular rhythm Heart sounds: no murmurs GI: GI Palp: Yes Soft to palpation, Yes Tenderness to palpation present (GI) (RUQ), No Guarding due to palpation present (GI) and No Rigid due to palpation Auscultation: normal bowel sounds : General: Yes CVA tenderness on the right Back/Spine/Pelvis: Back: CVA tenderness Skin: General skin exam: normal color Rashes: no rashes Wounds: no wounds Neuro: General: patient oriented x3, moves all extremities and CN's II-XI intact bilaterally Cranial nerves: Yes Nystagmus not present Speech: normal spe
[2022-08-28 05:56] LABS: Appearance Urine Clear (Clear); Bacteria Urine Trace /hpf; Basophils Absolute Auto 0.1 K/mm3 (0.0-0.1); Basophils Percent Auto 0.4 % (0.2-1.2); Bilirubin Urine Negative (Negative); Blood Urine Trace-intact (Negative); Color Urine Yellow (Yellow); Eosinophils Percent Auto 0.4 % (0-4.4); Glucose Urine UA Negative (Negative); Hematocrit 39.1 % (37.0-47.0); Hemoglobin 13.2 g/dL (12.0-15.0); Immature Granulocyte Absolute 0.04 K/mm3 (0.00-0.031); Immature Granulocyte Percent A 0.4 % (0-0.5); Ketones Urine 3+ mg/dL (Negative); Leukocyte Esterase Ur Negative LEU/UL (Negative); Lymphocytes Absolute Auto 1.71 K/mm3 (0.9-3.2); Lymphocytes Percent Auto 15.3 % (18.3-44.2); Mean Corpuscular HGB Conc 33.8 g/dl (32-36); Mean Corpuscular Hemoglobin 30.6 pg (26-34); Mean Corpuscular Volume 90.5 fl (80-100); Mean Platelet Volume 9.5 fl (7.4-10.4); Monocytes Absolute Auto 0.5 K/mm3 (0.1-0.6); Monocytes Percent Auto 4.5 % (2.6-8.5); Mucus Urine Rare /lpf; Neutrophils Absolute Auto 8.8 K/mm3 (1.3-6.7); Nitrate Urine Negative (Negative); Platelet Count Result 392 k/mm3 (150-375); Protein Urine Negative (Negative); Red Blood Count 4.32 M/mm3 (4.2-5.4); Red Cell Distribution Width 12.4 % (11.5-14.5); Specific Grav Ur >= 1.030 (1.001-1.035); Squamous Epithelial Cell Urine Occasional /hpf (Few); Urobilinogen Urine 0.2 mg/dL (<2.0); White Blood Count 11.2 K/mm3 (4.5-10.0); pH Urine 5.5 (5.0-9.0)
[2022-08-28 06:04] LABS: Add Urine Microscopic? YES
[2022-08-28 06:09] LABS: Alanine Aminotransferase 44 U/L (6-35); Albumin Level 4.6 g/dL (3.5-5.1); Alkaline Phosphatase 59 U/L (38-126); Anion Gap 9 mmol/L (8-16); Aspartate Amino Transferase 56 U/L (14-36); Bilirubin,Total 0.9 mg/dL (0.2-1.3); Blood Urea Nitrogen 16 mg/dL (7-17); Calcium 9.2 mg/dL (8.4-10.2); Carbon Dioxide 25 mmol/L (22-30); Chloride 105 mmol/L (98-107); Estimated Glomerular Filt Rate > 60; Glucose 136 mg/dL (65-110); Lipase 154 U/L (23-300); Potassium 3.5 mmol/L (3.4-5.0); Sodium 139 mmol/L (137-145)
[2022-08-28] MEDS: SODIUM CHLORIDE 0.9% IV 1,000 ML 999 ML IV CONT (06:11)
[2022-08-28] MEDS: ONDANSETRON INJ 4 MG/2 ML VIAL IV PUSH ×2 (06:11→13:33)
[2022-08-28] MEDS: HYDROmorphone HCL INJ (*CRX) 1 MG/ML SYR IV PUSH ×2 (06:12→13:33)
--- NOTE | 2022-08-28 07:47 | PM.IMHP ---
H&P: HPI History of Present Illness Date/Time: 08/28/22 07:47 Chief Complaint: abdominal pain Narrative: 42-year-old female with past medical history significant for anxiety is presenting with acute onset of severe abdominal pain. She states he was on the right side and radiated into her back. She tried Tums without relief. She denies nausea, vomiting or diarrhea. No fevers or chills. No sick contacts or recent travel. She denies chest pain or shortness of breath. She states it feels similar to when she had gallbladder pain but is now status post cholecystectomy. She is doubled over in pain and states it 10/10 despite dilaudid. In the ER, lab work showed elevated transaminases with a normal bilirubin and alk-phos. She was given Zofran and Dilaudid with some improvement. GI was consulted and recommended admission and MRCP. Review of Systems Review of Systems: 12 point review of systems was assessed and was negative except as noted in the HPI [facility] Past Medical History Medical History Anxiety UTI (urinary tract infection) Surgical History Surgical History H/O tubal ligation History of endometrial ablation Hx of cholecystectomy Family History Family History Other Cerebrovascular accident Social History Social History Smoking status: Never smoker Second hand tobacco smoke exposure: No Alcohol intake: unknown Substance use: never Lack of Transportation: No Lack of Food: Never True Current Housing: I Have Housing Concerned About Future Housing: No Difficulty Paying Gas/Electric Bills: No Difficulty Paying for Meds: No Currently Unemployed: No Education: High School Diploma/GED Difficulty w/ Childcare or Family Care: No Gender identity (if verbalized by the patient): Female Spiritual care concerns: No Meds Home Medications and Allergies Home Medications Medication Instructions Recorded Confirmed Type alprazolam 1 mg tablet 0.5 mg PO PRN PRN Anxiety 07/12/20 08/11/21 History sulfamethoxazole 800 1 tablet PO Q12H 7 days #14 tabs 05/15/21 Rx mg-trimethoprim 160 mg tablet clindamycin HCl 150 mg capsule 450 mg PO Q8H 10 days #90 caps 07/19/21 Rx naproxen 500 mg tablet (Naprosyn) 500 mg PO BID PRN pain #20 tabs 07/19/21 Rx Allergies Allergy/AdvReac Type Severity Reaction Status Date / Time amoxicillin [From Augmentin] AdvReac Intermediate Gastrointestinal Verified 05/15/21 12:18 Upset clavulanic acid AdvReac Intermediate Gastrointestinal Verified 05/15/21 12:18 [From Augmentin] Upset Vital Signs Vital Signs - 24 hr 08/28/22 05:35 Temperature 97.7 F Pulse Rate 68 Respiratory Rate 18 Pulse Oximetry 100 Oxygen Delivery Room Air Exam Narrative: General: Acute discomfort 2/2 pain, axox4 HEENT: Atraumatic, normocephalic, mucous membranes moist CV: Regular rate and rhythm, S1, S2 Lungs: Clear to auscultation bilaterally, no rales or crackles noted, no wheezes, good air entry Abdomen: TTP, no rebounding, some guarding Extremities: Normal to inspection Skin: No rashes noted, no lesions or wounds seen Psych: Euthymic, normal affect H&P: Results Labs Labs: Short CBC 08/28/22 Range/Units 05:44 WBC 11.2 H (4.5-10.0) K/mm3 Hgb 13.2 (12.0-15.0) g/dL Hct 39.1 (37.0-47.0) % Plt Count 392 H (150-375) k/mm3 BMP 08/28/22 05:44 Sodium 139 Potassium 3.5 Chloride 105 Carbon Dioxide 25 BUN 16 Creatinine 0.90 Glucose 136 H Calcium 9.2 Liver Function 08/28/22 Range/Units 05:44 Total Bilirubin 0.9 (0.2-1.3) mg/dL AST 56 H (14-36) U/L ALT 44 H (6-35) U/L Alkaline Phosphatase 59 (38-126) U/L Albumin 4.6 (3.5-5.1) g/dL Urine 08/28/22 Range/Units 05:44 Ur
[2022-08-28 08:45] LABS: Cholesterol 157 mg/dL (0-200); HDL Direct 61 mg/dL; Triglycerides 80 mg/dL (<150)
[2022-08-28 08:56] LABS: LDL Cholesterol Direct 61 mg/dL
[2022-08-28] MEDS: KETOROLAC 30 MG/ML VIAL (*BKC) IV PUSH (09:06)
[2022-08-28] MEDS: PANTOPRAZOLE SODIUM IV 40 MG VIAL IV PUSH (09:06)
[2022-08-28 09:08] LABS: Influenza A QL RT-PCR Negative (Negative); Influenza B QL RT-PCR Negative (Negative); SARS-CoV-2 RNA PCR Negative
--- NOTE | 2022-08-28 10:46 | ADMGEN ---
This patient, Mei Pineda, was admitted to 3 [facility] Surg Room 314-01 @ 1020. Patient/family oriented to hospital policies and general routines including ID bracelet, bed and alarms, visiting hours, pain management, procedures, bathroom and other care routines, personal items, smoking policy, room service/diet, and visiting hours. Information on how to activate the Rapid Response Team has been discussed. Patient/Family are encouraged to report perceived risks to care and to ask questions if they do not understand what they are told or what they should do.
[2022-08-28 11:51] LABS: Hemoglobin A1C 4.8 % (<5.7)
[2022-08-28] MEDS: SODIUM CHLORIDE 0.9% IV 1,000 ML 125 ML IV CONT ×2 (13:54→22:22)
[2022-08-28] MEDS: MORPHINE SULFATE (*CRX) 4 MG/ML INJ IV PUSH (15:25)
[2022-08-28] MEDS: MORPHINE SULFATE PCA (*CRX) 30 MG/30 ML SYR IV CONT (18:35)
[2022-08-29] VITALS: RESP 14; O2SAT 99
[2022-08-29 04:00] VITALS: RESP 16; O2SAT 97
[2022-08-29 05:41] VITALS: BP 103/53; PULSE 57; RESP 14; TEMP 36.4; O2SAT 97
[2022-08-29] MEDS: SODIUM CHLORIDE 0.9% IV 1,000 ML 125 ML IV CONT ×2 (06:10→14:18)
[2022-08-29] MEDS: LORazepam INJ (*CRX) 2 MG/ML VIAL 0.5 MG IV PUSH ×2 (07:42→20:21)
--- NOTE | 2022-08-29 08:06 | PM.IMPN ---
Progress Note: A&P Assessment and Plan (1) Abdominal pain: Code(s): R10.9 - Unspecified abdominal pain Status: Acute Assessment and Plan: Consult GI, MRCP ordered and pending Morphine BONE CHAR OPERATOR for pain control, unable to control with IV dilaudid (2) Elevated LFTs: Code(s): R79.89 - Other specified abnormal findings of blood chemistry Status: Acute Assessment and Plan: Significantly worsened today, suspect choledocholithiasis, MRCP still pending (3) Hyperglycemia: Code(s): R73.9 - Hyperglycemia, unspecified Status: Acute Assessment and Plan: A1c 4.8 (4) Anxiety: Code(s): F41.9 - Anxiety disorder, unspecified Status: Acute Assessment and Plan: Ativan as needed Plan DVT prophylaxis with SCDs GI prophylaxis with PPI Code status full code Subjective Date/time seen: 08/29/22 08:06 Interval history: No overnight events noted. No chest pain or shortness of breath. No nausea, vomiting or diarrhea. No fevers or chills. MRCP done this morning, report still pending. Patient resting comfortably on the morphine BONE CHAR OPERATOR. Review of Systems Review of Systems: 12 point review of systems was assessed and was negative except as noted in the HPI Exam Narrative: General: No acute distress, alert and oriented per baseline HEENT: Atraumatic, normocephalic, mucous membranes moist CV: Regular rate and rhythm, S1, S2 Lungs: Clear to auscultation bilaterally, no rales or crackles noted, no wheezes, good air entry Abdomen: Minimal tenderness to palpation, no rebounding or guarding Extremities: Normal to inspection Skin: No rashes noted, no lesions or wounds seen Psych: Euthymic, normal affect Objective Data Vital Signs Vital Signs: Vital Signs - 24 hr 08/28/22 08:31 08/28/22 08:46 08/28/22 09:31 Temperature Pulse Rate 60 60 Respiratory Rate 14 12 Blood Pressure 108/62 110/93 H 99/56 L Pulse Oximetry 100 99 100 Oxygen Delivery 08/28/22 11:15 08/28/22 14:00 08/28/22 18:35 Temperature 97.4 F L Pulse Rate 88 Respiratory Rate 20 14 Blood Pressure 131/76 Pulse Oximetry 100 98 Oxygen Delivery Room Air 08/28/22 20:00 08/28/22 20:00 08/28/22 23:48 Temperature 97.4 F L 97.5 F L Pulse Rate 68 63 Respiratory Rate 14 14 Blood Pressure 112/54 L 111/57 L Pulse Oximetry 100 96 Oxygen Delivery Room Air 08/29/22 00:00 08/29/22 04:00 08/29/22 05:41 Temperature 97.6 F Pulse Rate 57 L Respiratory Rate 14 16 14 Blood Pressure 103/53 L Pulse Oximetry 99 97 97 Oxygen Delivery 08/28/22 22:07 Temperature Pulse Rate Respiratory Rate Blood Pressure Pulse Oximetry 97 Oxygen Delivery Room Air Intake/Output Intake/Output: Intake & Output 08/26/22 08/27/22 08/28/22 08/29/22 23:59 23:59 23:59 23:59 Intake Total 1000 1000 Balance 1000 1000 Meds/Results Medications: Active Medications Generic Name Dose Route Start Last Admin Trade Name Freq PRN Reason Stop Dose Admin Hydromorphone HCl 0.5 mg 08/28/22 07:45 Hydromorphone Hcl Inj (*Crx) 1 Mg/Ml Syr IV PUSH Q4H PRN Pain Rated 7-10 Hydromorphone HCl 1 mg 08/28/22 07:54 08/28/22 13:33 Hydromorphone Hcl Inj (*Crx) 1 Mg/Ml Syr IV PUSH 1 mg Q4H PRN Administration Abdominal pain Sodium Chloride 1,000 mls @ 125 mls/hr 08/28/22 07:45 08/29/22 06:10 Normal Saline Iv IV CONT 125 mls/hr .Q8H MADDIE Administration Morphine Sulfate 30 mg in 30 mls @ 1 mls/hr 08/28/22 17:00 08/29/22 04:00 Morphine Sulfate Pipe Fitter Supervisor Maintenance IV CONT 1 mg/hr PRN PRN 1 mls/hr BONE CHAR OPERATOR Management Titration Protocol 1 MG/HR Lorazepam 0.5 mg 08/28/22 07:56 08/29/22 07:42 Lorazepam Inj (*Crx) 2 Mg/Ml Vial IV PUSH 0.5 mg Q6H PRN Administration Anxiety Ondansetron HCl 4 mg 08/28/22 07:45 08/28/22 13:33 Ondansetron Inj 4 Mg/2 Ml Vial IV PUSH 4 mg Q4H PRN Administration Nausea Pantoprazole Sod
[2022-08-29] MEDS: PANTOPRAZOLE SODIUM IV 40 MG VIAL IV PUSH (08:30)
[2022-08-29 09:36] LABS: Alanine Aminotransferase 334 U/L (6-35); Albumin Level 3.7 g/dL (3.5-5.1); Alkaline Phosphatase 95 U/L (38-126); Anion Gap 5 mmol/L (8-16); Aspartate Amino Transferase 225 U/L (14-36); Bilirubin,Total 2.7 mg/dL (0.2-1.3); Blood Urea Nitrogen 6 mg/dL (7-17); Calcium 7.9 mg/dL (8.4-10.2); Carbon Dioxide 25 mmol/L (22-30); Chloride 106 mmol/L (98-107); Estimated CRCL calculation 85 ml/min; Estimated Glomerular Filt Rate > 60; Glucose 88 mg/dL (65-110); Lipase 129 U/L (23-300); Potassium 3.6 mmol/L (3.4-5.0); Sodium 136 mmol/L (137-145)
[2022-08-29 10:12] LABS: Basophils Percent Auto 0.4 % (0.2-1.2); Eosinophils Absolute Auto 0.2 K/mm3 (0-0.3); Eosinophils Percent Auto 4.1 % (0-4.4); Hematocrit 35.1 % (37.0-47.0); Hemoglobin 11.3 g/dL (12.0-15.0); Immature Granulocyte Absolute 0.01 K/mm3 (0.00-0.031); Immature Granulocyte Percent A 0.2 % (0-0.5); Lymphocytes Absolute Auto 0.96 K/mm3 (0.9-3.2); Lymphocytes Percent Auto 20.7 % (18.3-44.2); Mean Corpuscular HGB Conc 32.2 g/dl (32-36); Mean Corpuscular Hemoglobin 30.1 pg (26-34); Mean Corpuscular Volume 93.6 fl (80-100); Mean Platelet Volume 9.9 fl (7.4-10.4); Monocytes Absolute Auto 0.4 K/mm3 (0.1-0.6); Monocytes Percent Auto 7.5 % (2.6-8.5); Neutrophils Absolute Auto 3.1 K/mm3 (1.3-6.7); Neutrophils Percent Auto 67.1 % (45.5-73.1); Platelet Count Result 315 k/mm3 (150-375); Red Blood Count 3.75 M/mm3 (4.2-5.4); White Blood Count 4.6 K/mm3 (4.5-10.0)
[2022-08-29 14:25] VITALS: BP 127/74; PULSE 82; RESP 18; TEMP 36.8; O2SAT 100
[2022-08-29] MEDS: ACETAMINOPHEN 325 MG TABLET 650 MG PO (14:40)
--- NOTE | 2022-08-29 15:53 | WPDGICN ---
Assessment and Plan Assessment and plan (1) Abdominal pain, right upper quadrant: Code(s): R10.11 - Right upper quadrant pain Status: Acute Assessment and Plan: she is post cholecystectomy wonder if could have stone or filling defect in bile duct, pending mrcp- may need ercp (2) Elevated LFTs: Code(s): R79.89 - Other specified abnormal findings of blood chemistry Status: Acute Assessment and Plan: monitor, probably biliary related CL diet for now and awaiting mrcp result may need ercp (3) Nausea and vomiting in adult: Code(s): R11.2 - Nausea with vomiting, unspecified Status: Acute (4) Hx of cholecystectomy: Code(s): Z90.49 - Acquired absence of other specified parts of digestive tract Status: Acute (5) Dilated bile duct: Code(s): K83.8 - Other specified diseases of biliary tract Status: Acute Assessment and Plan: pending mrcp GI Consult Note Consult date/time: 08/29/22 15:53 Reason for consult: ruq pain, elevated liver enzymes HPI: Mei Pineda is a 42 year old female with history of previous cholecystectomy years ago here with new onset of right upper quadrant pain that got severe and radiated into her back similar when used to have GB attack, tried Tums without relief, then had some nausea and finally came here. Noted mild elevated liver enzymes, CT scan mild dilated bile duct and mrcp is pending. Review of Systems Constitutional: Constitutional: Denies weakness ENT: Reports Normal hearing present Cardiovascular: Cardiovascular: Denies syncope, Denies rapid heart rate, Denies irregular heart rhythm, Denies leg edema and Denies dyspnea Respiratory: Respiratory: Denies chest congestion, Denies hemoptysis, Denies excessive phlegm production and Denies dyspnea Gastrointestinal: Gastrointestinal: Reports abdominal pain, Denies hematochezia, Denies diarrhea, Reports nausea and Reports vomiting Genitourinary: Genitourinary: Denies hematuria, Denies dysuria and Reports flank pain Musculoskeletal: Musculoskeletal: Reports back pain, Denies joint swelling, Denies loss of height and Denies muscle weakness Neurologic: Denies syncope, Denies focal weakness and Denies weakness Psychiatric: Psychiatric: Denies behavioral changes [facility] Past Medical History Medical History (Updated 08/29/22 @ 15:55 by Morris Menendez MD) Anxiety Dilated bile duct Nausea and vomiting in adult UTI (urinary tract infection) Surgical History Surgical History (Updated 08/29/22 @ 15:55 by Morris Menendez MD) H/O tubal ligation History of endometrial ablation Hx of cholecystectomy Family History Family History Other Cerebrovascular accident Social History Social History Smoking status: Never smoker Second hand tobacco smoke exposure: No Alcohol intake: unknown Substance use: never Lack of Transportation: No Lack of Food: Never True Current Housing: I Have Housing Concerned About Future Housing: No Difficulty Paying Gas/Electric Bills: No Difficulty Paying for Meds: No Currently Unemployed: No Education: High School Diploma/GED Difficulty w/ Childcare or Family Care: No Gender identity (if verbalized by the patient): Female Spiritual care concerns: No Meds Home Medications and Allergies Home Medications Medication Instructions Recorded Confirmed Type alprazolam 1 mg tablet (Xanax) 1 mg PO PRN PRN Anxiety 07/12/20 08/28/22 History Allergies Allergy/AdvReac Type Severity Reaction Status Date / Time No Known Allergies Allergy Verified 08/28/22 19:56 Vital Signs Vital Signs - 24 hr 08/28/22 18:35 08/28/22 20:00 08/28/22 20:00 Temperature 97.4 F L Pulse Rate 68 Respiratory Rate 14 14 Blood Pressure 112/54 L Pulse Oximetry 98 100 Oxygen Delive
[2022-08-29 21:49] VITALS: BP 119/77; PULSE 73; RESP 18; TEMP 36.6; O2SAT 99
[2022-08-30] MEDS: SODIUM CHLORIDE 0.9% IV 1,000 ML 125 ML IV CONT (01:48)
[2022-08-30 06:00] VITALS: BP 102/63; PULSE 69; RESP 18; TEMP 36.4; O2SAT 99
[2022-08-30 07:15] LABS: Basophils Percent Auto 0.6 % (0.2-1.2); Eosinophils Absolute Auto 0.4 K/mm3 (0-0.3); Eosinophils Percent Auto 6.8 % (0-4.4); Hematocrit 35.2 % (37.0-47.0); Hemoglobin 11.5 g/dL (12.0-15.0); Immature Granulocyte Absolute 0.02 K/mm3 (0.00-0.031); Immature Granulocyte Percent A 0.4 % (0-0.5); Lymphocytes Absolute Auto 1.85 K/mm3 (0.9-3.2); Lymphocytes Percent Auto 35.7 % (18.3-44.2); Mean Corpuscular HGB Conc 32.7 g/dl (32-36); Mean Corpuscular Hemoglobin 30.3 pg (26-34); Mean Corpuscular Volume 92.9 fl (80-100); Mean Platelet Volume 9.6 fl (7.4-10.4); Monocytes Absolute Auto 0.5 K/mm3 (0.1-0.6); Monocytes Percent Auto 8.9 % (2.6-8.5); Neutrophils Absolute Auto 2.5 K/mm3 (1.3-6.7); Neutrophils Percent Auto 47.6 % (45.5-73.1); Platelet Count Result 333 k/mm3 (150-375); Red Blood Count 3.79 M/mm3 (4.2-5.4); Red Cell Distribution Width 12.7 % (11.5-14.5); White Blood Count 5.2 K/mm3 (4.5-10.0)
[2022-08-30 07:28] LABS: Alanine Aminotransferase 246 U/L (6-35); Albumin Level 3.7 g/dL (3.5-5.1); Alkaline Phosphatase 92 U/L (38-126); Anion Gap 3 mmol/L (8-16); Aspartate Amino Transferase 93 U/L (14-36); Bilirubin,Total 0.9 mg/dL (0.2-1.3); Blood Urea Nitrogen 4 mg/dL (7-17); Carbon Dioxide 24 mmol/L (22-30); Chloride 108 mmol/L (98-107); Estimated CRCL calculation 96 ml/min; Estimated Glomerular Filt Rate > 60; Glucose 87 mg/dL (65-110); Potassium 3.4 mmol/L (3.4-5.0); Sodium 135 mmol/L (137-145)
[2022-08-30] MEDS: PANTOPRAZOLE SODIUM IV 40 MG VIAL IV PUSH (08:42)
--- NOTE | 2022-08-30 11:28 | WPDGIPROGNO ---
Progress Note: A&P Assessment and Plan (1) Abdominal pain, right upper quadrant: Code(s): R10.11 - Right upper quadrant pain Status: Acute Assessment and Plan: resolved I think she already passed a stone and now bilirubin is back down to normal MRCP reviewed and size of bile duct back to her baseline and no stones ok to advance to low fat diet and she can go home no plan for ercp (2) Nausea and vomiting in adult: Code(s): R11.2 - Nausea with vomiting, unspecified Status: Acute Assessment and Plan: resolved (3) Dilated bile duct: Code(s): K83.8 - Other specified diseases of biliary tract Status: Acute Assessment and Plan: resolved, mrcp showed now normal size (4) Elevated LFTs: Code(s): R79.89 - Other specified abnormal findings of blood chemistry Status: Acute Assessment and Plan: trending down again probably was biliary related (5) Hx of cholecystectomy: Code(s): Z90.49 - Acquired absence of other specified parts of digestive tract Status: Acute Subjective Date/time seen: 08/30/22 11:28 Interval history: no more pain and did not require any more iv pain med, doing much better and also noted that urine is clear (dark on admission) Review of Systems Review of Systems: All systems reviewed & are unremarkable except as noted in HPI and below Exam Const: General: comfortable and no acute distress HENMT: Face/Nose/Sinus: Normal nares present Eyes: General: appearance normal, both eyes and all related structures Neck: Neck: no JVD Resp: Auscultation: clear to auscultation bilaterally Cardio: Rate: regular rate Rhythm: regular rhythm GI: Inspection: non-distended GI Palp: Yes Soft to palpation, No Tenderness to palpation present (GI) and No Guarding due to palpation present (GI) Skin: General skin exam: normal color Neuro: General: gait normal Speech: normal speech Extrem: General: normal to inspection Psych: Mental Status: mental status grossly normal Objective Data Vital Signs Vital Signs: Vital Signs - 24 hr 08/29/22 14:25 08/29/22 21:49 08/29/22 20:00 Temperature 98.3 F 97.9 F Pulse Rate 82 73 Respiratory Rate 18 18 Blood Pressure 127/74 119/77 Pulse Oximetry 100 99 Oxygen Delivery Room Air 08/30/22 06:00 08/30/22 08:30 Temperature 97.5 F L Pulse Rate 69 Respiratory Rate 18 Blood Pressure 102/63 Pulse Oximetry 99 Oxygen Delivery Room Air Intake/Output Intake/Output: Intake & Output 08/27/22 08/28/22 08/29/22 08/30/22 23:59 23:59 23:59 23:59 Intake Total 1000 3600 790 Balance 1000 3600 790 Meds/Results Medications: Active Medications Generic Name Dose Route Start Last Admin Trade Name Freq PRN Reason Stop Dose Admin Acetaminophen 650 mg 08/29/22 14:32 08/29/22 14:40 Acetaminophen 325 Mg Tablet PO 650 mg Q6H PRN Administration Mild Pain (1-3) or Fever Hydromorphone HCl 1 mg 08/28/22 07:54 08/28/22 13:33 Hydromorphone Hcl Inj (*Crx) 1 Mg/Ml Syr IV PUSH 1 mg Q4H PRN Administration Abdominal pain Sodium Chloride 1,000 mls @ 125 mls/hr 08/28/22 07:45 08/30/22 01:48 Normal Saline Iv IV CONT 125 mls/hr .Q8H MADDIE Administration Lorazepam 0.5 mg 08/28/22 07:56 08/29/22 20:21 Lorazepam Inj (*Crx) 2 Mg/Ml Vial IV PUSH 0.5 mg Q6H PRN Administration Anxiety Morphine Sulfate 4 mg 08/30/22 11:00 Morphine Sulfate (*Crx) 4 Mg/Ml Inj IV PUSH Q4H PRN Pain Rated 7-10 Ondansetron HCl 4 mg 08/28/22 07:45 08/28/22 13:33 Ondansetron Inj 4 Mg/2 Ml Vial IV PUSH 4 mg Q4H PRN Administration Nausea Oxycodone/Acetaminophen 1 tablet 08/30/22 11:00 Oxycodone/Acetaminophen (*Crx) 5-325 Mg Tablet PO Q4H PRN Pain Rated 7-10 Pantoprazole Sodium 40 mg 08/29/22 09:00 08/30/22 08:42 Pantoprazole Sodium Iv 40 Mg Vial IV PUSH 40 mg DAILY MADDIE Administration Radio
[2022-08-30 12:33] LABS: Hepatitis B Surface Antigen Negative (Negative)
[2022-08-30 12:39] LABS: HAV RESULT Negative (Negative); Hepatitis B Core IgM Result Negative (Negative)
[2022-08-30 12:50] LABS: Hepatitis C Virus Antibody Negative (Negative)
[2022-08-30 14:00] VITALS: BP 110/76; PULSE 84; RESP 20; TEMP 36.6; O2SAT 98
--- NOTE | 2022-08-30 15:42 | PM.DS ---
DS: Admitting Diagnosis Discharge Date 08/30/22 Admitting Diagnosis abdominal pain DS: Discharge Diagnosis Discharge Diagnosis (1) Abdominal pain: Code(s): R10.9 - Unspecified abdominal pain Status: Acute Assessment and Plan: Consult GI, MRCP ordered and pending Morphine DISPUTE RESOLUTION SPECIALIST for pain control, unable to control with IV dilaudid (2) Elevated LFTs: Code(s): R79.89 - Other specified abnormal findings of blood chemistry Status: Acute Assessment and Plan: Significantly worsened today, suspect choledocholithiasis, MRCP still pending (3) Hyperglycemia: Code(s): R73.9 - Hyperglycemia, unspecified Status: Acute Assessment and Plan: A1c 4.8 (4) Anxiety: Code(s): F41.9 - Anxiety disorder, unspecified Status: Acute Assessment and Plan: Ativan as needed Plan DVT prophylaxis with SCDs GI prophylaxis with PPI Code status full code DS: Summary Hospital Course Hospital Course: 42-year-old female with past medical history significant for anxiety is presenting with acute onset of severe abdominal pain.? She states he was on the right side and radiated into her back.? She tried Tums without relief.? She denies nausea, vomiting or diarrhea.? No fevers or chills.? No sick contacts or recent travel.? She denies chest pain or shortness of breath.? She states it feels similar to when she had gallbladder pain but is now status post cholecystectomy.? She is doubled over in pain and states it 10/10 despite dilaudid. In the ER, lab work showed elevated transaminases with a normal bilirubin and alk-phos.? She was given Zofran and Dilaudid with some improvement.? GI was consulted and recommended admission and MRCP. She required a morphine DISPUTE RESOLUTION SPECIALIST for pain control. MRCP showed common bile duct diameter had decreased and there was no evidence of obstructing stones or masses. GI thought her symptoms were secondary to an obstructing stone that had passed. All symptoms resolved, she was stable on no pain medications and discharged in good condition with close outpatient follow-up. LFTs were noted to be elevated at admission, these are trending down but were not completely normal prior to discharge. Hepatitis panel was ordered and is pending. She should follow-up with her family doctor for the results of the hepatitis panel and repeat LFTs to confirm they do resolved. Time Spent with Patient Time attestation: Total time spent providing and/or coordinating discharge services: Exam Narrative: General: No acute distress, alert and oriented per baseline HEENT: Atraumatic, normocephalic, mucous membranes moist CV: Regular rate and rhythm, S1, S2 Lungs: Clear to auscultation bilaterally, no rales or crackles noted, no wheezes, good air entry Abdomen: Minimal tenderness to palpation, no rebounding or guarding Extremities: Normal to inspection Skin: No rashes noted, no lesions or wounds seen Psych: Euthymic, normal affect DS: Data Data Completed and Pending Labs on day of discharge: Labs from last 24 hours 08/30/22 08/30/22 08/30/22 07:05 07:05 07:04 WBC 5.2 RBC 3.79 L Hgb 11.5 L Hct 35.2 L MCV 92.9 MCH 30.3 MCHC 32.7 RDW 12.7 Plt Count 333 MPV 9.6 Immature Gran % (Auto) 0.4 Neut % (Auto) 47.6 Lymph % (Auto) 35.7 Ballard % (Auto) 8.9 H Eos % (Auto) 6.8 H Baso % (Auto) 0.6 Lymph # (Auto) 1.85 Ballard # (Auto) 0.5 Eos # (Auto) 0.4 H Baso # (Auto) 0.0 Abs Immat Gran (auto) 0.02 Absolute Neuts (auto) 2.5 Absolute Nucleated RBC 0.0 Nucleated RBC % 0.0 Sodium 135 L Potassium 3.4 Chloride 108 H Carbon Dioxide 24 Anion Gap 3 L BUN 4 L Creatinine 0.70 Estim Creat Clear Calc 96 Estimated GFR > 60 Glucose 87 Calcium 8.0 L Total Bilirubin 0.9 AST 93 H ALT 246 H Alkaline Phosphatase 92 Total Protein 6.0 L Albumin 3.7 Hepatitis A IgM Ab N
== END 2022-08-30 16:40 | disposition home or self-care (01) ==
LOC: ANHED 06:04 → ANH3MEDSUR 09:51
PROVIDERS: Admitting Provider Student in an Organized Health Care Education/Training Program; Emergency Provider General Practice; PCP Family Medicine; Visit Provider Student in an Organized Health Care Education/Training Program
DX: K80.51 Calculus of bile duct without cholangitis or cholecystitis with obstruction (principal); F41.9 Anxiety disorder, unspecified; R73.9 Hyperglycemia, unspecified; Z20.822 Contact with and (suspected) exposure to COVID-19; Z90.49 Acquired absence of other specified parts of digestive tract
CPT/HCPCS: 36415; 74177; 74183; 76376; 80053; 80061; 80074; 81001; 81025; 83036; 83690; 85025; 87636; 96361; 96365; 96366; 96374; 96375; 96376; 99285; A9270; A9577; C9113; G0378; G0379; J1170; J1885; J2060; J2270; J2405; J7030; Q9967

== ENCOUNTER 2022-10-27 13:47 | Emergency (ER) | payer BC, SELFPAY ==
[2022-10-27 14:00] VITALS: BP 127/74; PULSE 79; RESP 16; TEMP 36.2; O2SAT 98
--- NOTE | 2022-10-27 14:00 | ED.BACK ---
HPI - Back Pain/Injury General Chief Complaint: Back Pain/Injury Stated Complaint: lower back pain Time Seen by Provider: 10/27/22 14:00 Source: patient Mode of arrival: ambulatory Limitations: no limitations History of Present Illness HPI Narrative: 42-year-old female presents with complaint of left-sided low back pain radiating into left hip and but since yesterday. Denies injury. pt is a waiter/waitress formal. States she has never had sciatica. Taking ibuprofen to treat pain.Ambulatory with steady gait. Denies numbness, weakness to lower extremities. No loss of bowel or bladder. All systems reviewed and negative except as noted above. Related Data Home Medications Medication Instructions Recorded Confirmed alprazolam 1 mg tablet (Xanax) 1 mg PO PRN PRN Anxiety 07/12/20 10/27/22 Allergies Allergy/AdvReac Type Severity Reaction Status Date / Time No Known Allergies Allergy Verified 10/27/22 13:51 Review of Systems Review of Systems: CONSTITUTIONAL: Denies fever, chills, or sweats. EYES: Denies visual changes, redness, or discharge. ENT: Denies rhinorrhea, congestion, sore throat, or otalgia. CARDIOVASCULAR: Denies chest pain, palpitations, or edema. RESPIRATORY: Denies cough or dyspnea. GASTROINTESTINAL: Denies abdominal pain, nausea, vomiting, or diarrhea. GENITOURINARY: Denies dysuria or hematuria. SKIN: Denies rash or itching. MUSCULOSKELETAL: Reports left lower back pain. Denies joint pain, or myalgia. NEUROLOGIC: Denies headache, numbness, or weakness. PSYCHIATRIC: Denies anxiety or depression. All other systems reviewed are negative, except as documented in HPI. [facility] Past Medical History Medical History (Updated 10/27/22 @ 14:11 by Lisa Brooke NP) Anxiety Dilated bile duct Nausea and vomiting in adult UTI (urinary tract infection) Surgical History Surgical History (Updated 08/29/22 @ 15:55 by Morris Menendez MD) H/O tubal ligation History of endometrial ablation Hx of cholecystectomy Family History Family History Other Cerebrovascular accident Social History Social History Smoking status: Never smoker Second hand tobacco smoke exposure: No Alcohol intake: unknown Substance use: never Lack of Transportation: No Lack of Food: Never True Current Housing: I Have Housing Concerned About Future Housing: No Difficulty Paying Gas/Electric Bills: No Difficulty Paying for Meds: No Currently Unemployed: No Education: High School Diploma/GED Difficulty w/ Childcare or Family Care: No Gender identity (if verbalized by the patient): Female Spiritual care concerns: No Comments At time of signature, agree with nursing past medical, surgical, social and family history. There is no relevant family history pertinent to the presenting complaint. Exam Narrative: GENERAL: This is a well-nourished, well-developed patient, in no apparent distress. HEAD: normocephalic, atraumatic. EYES: PERRL. Sclera clear/white. Vision is grossly intact. EARS: External ears normal NOSE: External nose normal NECK: Neck supple, non-tender without lymphadenopathy, masses or thyromegaly. CARDIOVASCULAR: Regular rate and rhythm without murmurs, gallops, or rubs. RESPIRATORY: Clear to auscultation. Breath sounds equal bilaterally. No wheezes, rales, or rhonchi. SKIN: warm, Dry, intact with no suspicious lesions or rash, good texture and turgor. NEURO: awake, alert, and oriented to person, place and time. There were no obvious focal neurologic abnormalities. EXTREMITIES: No joint tenderness, effusion, or edema noted. BACK: no midline tenderness. Tenderness over left SI joint radiating into left buttock. Positive left straight leg raise. Lower extremity strength 5/5. Course Course Level of Care: Express Care Visit Vital Signs Vital signs: Vital Signs T
== END 2022-10-27 14:15 | disposition home or self-care (01) ==
PROVIDERS: Emergency Provider Nurse Practitioner Family; PCP Family Medicine
DX: M54.42 Lumbago with sciatica, left side (principal); F41.9 Anxiety disorder, unspecified
CPT/HCPCS: 99213; G0463

== ENCOUNTER 2023-03-02 22:54 | Emergency (ER) | payer BC, SELFPAY ==
--- NOTE | ~2023-03-02 | CT_ITS ---
CT scan of the Neck Technique: 2.5 mm axial scans were obtained through the neck after intravenous administration of 75 c c Omnipaque 350. Coronal and sagittal reconstructions of the neck were obtained. Dose reduction techn ique was used on this scan by utilizing automated exposure control and iterative reconstruction techn ique. The dose-length product (DLP) was 493.28 mGy-cm. Clinical History: Pain, abscess COMPARISON: 07/19/2021 Findings: There is no evidence of any significant cervical lymphadenopathy. Several small, nonenlarged jugulo- digastric and posterior cervical lymph nodes are noted bilaterally. Parapharyngeal spaces appear norm al bilaterally. The parotid and submandibular glands appear normal. The pharyngeal mucosal spaces appear normal. No soft tissue masses are seen in the neck. The thyroid gland appears normal. Images of the lung apices reveal no abnormalities. Impression: No significant abnormalities noted. Reviewed, dictated and finalized at [facility]. Impression: No significant abnormalities noted.
[2023-03-02 23:24] VITALS: BP 152/85; PULSE 87; RESP 18; TEMP 36.5; O2SAT 98
[2023-03-03 01:22] LABS: Basophils Percent Auto 0.6 % (0.2-1.2); Eosinophils Absolute Auto 0.1 K/mm3 (0-0.3); Hematocrit 43.2 % (37.0-47.0); Hemoglobin 14.3 g/dL (12.0-15.0); Immature Granulocyte Absolute 0.01 K/mm3 (0.00-0.031); Immature Granulocyte Percent A 0.1 % (0-0.5); Lymphocytes Absolute Auto 3.17 K/mm3 (0.9-3.2); Lymphocytes Percent Auto 46.7 % (18.3-44.2); Mean Corpuscular HGB Conc 33.1 g/dl (32-36); Mean Corpuscular Hemoglobin 30.1 pg (26-34); Mean Corpuscular Volume 90.9 fl (80-100); Monocytes Absolute Auto 0.4 K/mm3 (0.1-0.6); Neutrophils Absolute Auto 3.1 K/mm3 (1.3-6.7); Neutrophils Percent Auto 45.6 % (45.5-73.1); Platelet Count Result 414 k/mm3 (150-375); Red Blood Count 4.75 M/mm3 (4.2-5.4); Red Cell Distribution Width 12.4 % (11.5-14.5); White Blood Count 6.8 K/mm3 (4.5-10.0)
[2023-03-03 01:28] VITALS: PULSE 92; RESP 16; O2SAT 99
[2023-03-03] MEDS: SODIUM CHLORIDE 0.9% IV 1,000 ML 999 ML IV CONT (01:28)
[2023-03-03 01:32] LABS: Lactic Acid Reflex 1.9 mmol/L (0.7-2.0)
[2023-03-03 01:33] LABS: Alanine Aminotransferase 26 U/L (6-35); Albumin Level 4.9 g/dL (3.5-5.1); Anion Gap 13 mmol/L (8-16); Aspartate Amino Transferase 29 U/L (14-36); Bilirubin,Total 0.5 mg/dL (0.2-1.3); Blood Urea Nitrogen 11 mg/dL (7-17); Calcium 10.3 mg/dL (8.4-10.2); Carbon Dioxide 27 mmol/L (22-30); Chloride 102 mmol/L (98-107); Estimated CRCL calculation 73 ml/min; Estimated Glomerular Filt Rate > 60; Glucose 95 mg/dL (65-110); Potassium 3.7 mmol/L (3.4-5.0); Sodium 142 mmol/L (137-145)
[2023-03-03 01:34] LABS: Alkaline Phosphatase 62 U/L (38-126)
[2023-03-03 01:57] LABS: Appearance Urine Turbid (Clear); Bacteria Urine 2+ /hpf; Bilirubin Urine Negative (Negative); Blood Urine Negative (Negative); Color Urine Yellow (Yellow); Glucose Urine UA Negative (Negative); Ketones Urine Negative (Negative); Leukocyte Esterase Ur 2+ LEU/UL (Negative); Need Manual Microscopic Reviewed; Nitrate Urine Negative (Negative); Non Pathogenic Casts 0-2; Protein Urine Negative (Negative); Specific Grav Ur 1.019 (1.001-1.035); Squamous Epithelial Cell Urine Many /hpf (Few); Urobilinogen Urine 0.2 mg/dL (<2.0); WBC Urine 21-50 /hpf; pH Urine 7.5 (5.0-9.0)
[2023-03-03 01:58] LABS: Add Urine Microscopic? YES
[2023-03-03 02:49] VITALS: BP 129/83; PULSE 72; RESP 16; O2SAT 97
--- NOTE | 2023-03-03 02:56 | ED.GENADULT ---
HPI - General Adult General Chief complaint: Dental/Oral Stated complaint: infected tooth, difficulty swallowing Time Seen by Provider: 03/03/23 00:54 History of Present Illness HPI narrative: Patient 42-year-old female that presents the emergency department chief complaint dental pain and discomfort with swallowing. The patient reports she has a infected tooth and reports that she been on antibiotics for several days and reports that now it whenever she swallows it feels uncomfortable the patient does report that she is able to swallow her own secretions denies shortness of breath stridor or change in her voice. Related Data Home Medications Medication Instructions Recorded Confirmed alprazolam 1 mg tablet (Xanax) 1 mg PO PRN PRN Anxiety 07/12/20 10/27/22 Allergies Allergy/AdvReac Type Severity Reaction Status Date / Time No Known Allergies Allergy Verified 03/02/23 23:28 Review of Systems Review of Systems: A 10 system review of systems was completed on the patient and is negative except for what is stated in the HPI. Nursing and ancillary documentation was reviewed. [facility] Past Medical History Medical History Anxiety Dilated bile duct Nausea and vomiting in adult UTI (urinary tract infection) Surgical History Surgical History H/O tubal ligation History of endometrial ablation Hx of cholecystectomy Family History Family History Other Cerebrovascular accident Social History Social History Smoking status: Never smoker Second hand tobacco smoke exposure: No Alcohol intake: unknown Substance use: never Lack of Transportation: No Lack of Food: Never True Current Housing: I Have Housing Concerned About Future Housing: No Difficulty Paying Gas/Electric Bills: No Difficulty Paying for Meds: No Currently Unemployed: No Education: High School Diploma/GED Difficulty w/ Childcare or Family Care: No Gender identity (if verbalized by the patient): Female Spiritual care concerns: No Exam Narrative: GENERAL: Well-appearing, well-nourished, and in no acute distress. HEAD: Normocephalic, atraumatic. EYES: PERRLA and EOMI. ENT: Nares clear, no rhinorrhea or epistaxis. Mucous membranes moist. No fluctuant mass in the mouth NECK: Supple. Tenderness to palpation in the right anterior neck no fluctuance or crepitance noted CHEST: Clear to auscultation. No respiratory distress. HEART: Regular rate and rhythm. No murmur heard. Normal peripheral pulses. ABDOMEN: Soft, nontender, nondistended, normal active bowel sounds. EXTREMITIES: Normal range of motion. No edema. SKIN: Warm, dry, no rash. NEURO: No focal deficits. Alert and oriented x3. PSYCH: Normal mood and affect. Course Vital Signs Vital signs: Vital Signs Temperature 36.5 C 03/02/23 23:24 Pulse Rate 87 03/02/23 23:24 Respiratory Rate 18 03/02/23 23:24 Blood Pressure 152/85 H 03/02/23 23:24 Pulse Oximetry 98 03/02/23 23:24 Oxygen Delivery Room Air 03/02/23 23:24 Temperature 36.5 C 03/02/23 23:24 Pulse Rate 72 03/03/23 02:49 Respiratory Rate 16 03/03/23 02:49 Blood Pressure 129/83 03/03/23 02:49 Pulse Oximetry 97 03/03/23 02:49 Oxygen Delivery Room Air 03/02/23 23:24 Medical Decision Making MDM Narrative Medical decision making narrative: Differential diagnosis closed retropharyngeal abscess, oral abscess, Laboratory studies were obtained and the patient showed a white count of 6.8 electrolytes are within normal limits lactic acid was 1.9 urinalysis did show evidence of a UTI that had many squamous cells Patient is currently on amoxicillin and will continue the amoxicillin patient is to follow-up with a dentist s
== END 2023-03-03 03:07 | disposition home or self-care (01) ==
PROVIDERS: Emergency Provider Emergency Medicine; PCP Family Medicine
DX: K02.9 Dental caries, unspecified (principal); F41.9 Anxiety disorder, unspecified; Z87.440 Personal history of urinary (tract) infections; Z90.49 Acquired absence of other specified parts of digestive tract
CPT/HCPCS: 36415; 70491; 80053; 81001; 81025; 83605; 85025; 87086; 96361; 96374; 99284; J1100; J7030; Q9967

== ENCOUNTER 2023-09-17 11:18 | Emergency (ER) | payer BC, SELFPAY ==
--- NOTE | 2023-09-17 11:26 | ED.URI ---
HPI - URI/Sore Throat General Chief Complaint: Upper Respiratory Infection Stated Complaint: cough,congestion Time Seen by Provider: 09/17/23 11:34 Source: patient, RN notes reviewed and old records reviewed Mode of arrival: ambulatory Limitations: no limitations History of Present Illness HPI Narrative: 43-year-old female presents to the [facility] with sore throat that started 2 days ago, right ear pain, cough and congestion started yesterday No fevers. MD elicited complaint: cough and sore throat Related Data Home Medications Medication Instructions Recorded Confirmed alprazolam 1 mg tablet (Xanax) 1 mg PO PRN PRN Anxiety 07/12/20 09/17/23 escitalopram oxalate 10 mg tablet 10 mg DIRECTED 09/17/23 09/17/23 Allergies Allergy/AdvReac Type Severity Reaction Status Date / Time No Known Allergies Allergy Verified 09/17/23 11:35 Review of Systems Review of Systems: All systems reviewed & are unremarkable except as noted in HPI and below Constitutional: Constitutional: Reports no additional constitutional complaints Eyes: Eyes: Reports no additional eye complaints ENT: Reports as per HPI and Reports otalgia Cardiovascular: Cardiovascular: Reports no additional cardiovascular complaints, Denies chest pain and Denies dyspnea Respiratory: Respiratory: Reports as per HPI, Denies chest congestion, Reports cough and Denies dyspnea Gastrointestinal: Gastrointestinal: Reports no additional gastrointestinal complaints, Denies abdominal pain, Denies nausea and Denies vomiting Musculoskeletal: Musculoskeletal: Reports no additional musculoskeletal complaints Integumentary/Breasts: Skin/Breast: Reports system reviewed and no additional complaints, except as docu Neurologic: Reports system reviewed and no additional complaints, except as documented Psychiatric: Psychiatric: Reports no additional psychiatric complaints Allergic/Immunologic: Allergic/Immunologic: Reports no additional allergic/immunologic complaints [facility] Past Medical History Medical History Anxiety Dilated bile duct Nausea and vomiting in adult UTI (urinary tract infection) Surgical History Surgical History H/O tubal ligation History of endometrial ablation Hx of cholecystectomy Family History Family History Other Cerebrovascular accident Social History Social History (Reviewed 09/17/23 @ 19:48 by CARLOS Billy Smoking status: Never smoker Second hand tobacco smoke exposure: No Alcohol intake: unknown Substance use: never Lack of Transportation: No Lack of Food: Never True Current Housing: I Have Housing Concerned About Future Housing: No Difficulty Paying Gas/Electric Bills: No Difficulty Paying for Meds: No Currently Unemployed: No Education: High School Diploma/GED Difficulty w/ Childcare or Family Care: No Gender identity (if verbalized by the patient): Female Spiritual care concerns: No Comments At the time of my signature, I reviewed and agree with the nursing past medical, surgical, social, and family history. There is no relevant family history pertinent to the patient complaint. Exam Const: General: cooperative, healthy appearing, comfortable, no acute distress, well developed, alert and well nourished Nutritional Appearance: well nourished Orientation/consciousness: patient oriented x3 Limitations: no limitations HENMT: Head: normal to inspection Ears: hearing grossly normal bilaterally, external ears normal, TM's normal bilaterally, EAC's normal, mastoids normal and no periauricular adenopathy Face/Nose/Sinus: Normal external nose present, Normal nares present, Normal nasal mucous membranes and turbinates present, No nasal discharge present, normal facial exam and face symmetric Face and sinus: normal facial exam and fa
[2023-09-17 11:34] VITALS: BP 116/75; PULSE 63; RESP 16; TEMP 36.4; O2SAT 98
== END 2023-09-17 11:55 | disposition home or self-care (01) ==
PROVIDERS: Emergency Provider Nurse Practitioner; PCP Family Medicine
DX: J06.9 Acute upper respiratory infection, unspecified (principal); Z20.822 Contact with and (suspected) exposure to COVID-19; F41.9 Anxiety disorder, unspecified
CPT/HCPCS: 87081; 87426; 87804; 87880; 99213; G0463

== ENCOUNTER 2024-06-15 14:30 | Emergency (ER) | payer BC, SELFPAY ==
[2024-06-15 14:39] VITALS: BP 112/63; PULSE 70; RESP 18; TEMP 36.8; O2SAT 99
--- NOTE | 2024-06-15 14:48 | ED_ITS ---
HPI - Back Pain/Injury General Chief Complaint: Back Pain/Injury Stated Complaint: swollen lumps in lower back Time Seen by Provider: 06/15/24 14:45 Source: patient Mode of arrival: ambulatory Limitations: no limitations History of Present Illness HPI Narrative: Mei is a 43-year-old female patient presenting to the clinic today with complaints of swollen lumps to her upper lower back. She reports that she woke up this morning with swollen area to the bilateral upper back. Reports that she was having some low back pain yesterday and thought it may been a kidney infection although she is not reporting any urinary symptoms. States that she used a massager on her back last night and woke up this morning with tender lumps in her back. She denies any back injury. Last bowel movement was today. States that she did not have a bowel movement 1 week prior to today's BM-is dieting and having a hard time getting her protein in. Denies any saddle anesthesia or radiculopathy. No loss of bowel or bladder. Denies any vaginal discharge, odor, or concern for STI. Related Data Home Medications Medication Instructions Recorded Confirmed escitalopram oxalate 10 mg tablet 10 mg DIRECTED 09/17/23 06/15/24 Allergies Allergy/AdvReac Type Severity Reaction Status Date / Time No Known Allergies Allergy Verified 06/15/24 14:43 Review of Systems Review of Systems: Pertinent positives per HPI. Patient denies any fever, chills, rash, headache, visual changes, dizziness, cough, runny nose, sore throat, shortness of breath, chest pain, palpitations, nausea, vomiting, diarrhea, constipation, abdominal pain, or any urinary issues. [facility] Past Medical History Medical History Anxiety Dilated bile duct Nausea and vomiting in adult UTI (urinary tract infection) Surgical History Surgical History H/O tubal ligation History of endometrial ablation Hx of cholecystectomy Family History Family History Other Cerebrovascular accident Social History Social History Smoking status: Never smoker Second hand tobacco smoke exposure: No Alcohol intake: unknown Substance use: never Lack of Transportation: No Lack of Food: Never True Current Housing: I Have Housing Concerned About Future Housing: No Difficulty Paying Gas/Electric Bills: No Difficulty Paying for Meds: No Currently Unemployed: No Education: High School Diploma/GED Difficulty w/ Childcare or Family Care: No Gender identity (if verbalized by the patient): Female Spiritual care concerns: No Comments At the time of my signature, I reviewed and agree with the nursing past medical, surgical, social, and family history. There is no relevant family history pertinent to the patient complaint. Exam Narrative: General: Well-developed, well nourished, in no apparent distress Head: Normocephalic, atraumatic. Cardio: Regular rate and rhythm, s1 and s2 normal, no murmur appreciated. Resp: Clear to auscultation bilaterally, no rhonchi, rales, wheezing or rubs. Musculoskeletal: No deformity, tender to palpation over the musculature kathleen pinous musculature to the upper low back, pain worse with bending, grossly normal range of motion, muscle strength strong and equal in BLE. SLT negative, patellar reflexes 2/4 bilaterally, negative foot drop, normal gait and station Course Course Emergency Course: Portions of this record may have been created with voice recognition software. Level of Care: Express Care Visit Vital Signs Vital signs: Vital Signs Temperature 36.8 C 06/15/24 14:39 Pulse Rate 70 06/15/24 14:39 Respiratory Rate 18 06/15/24 14:39 Blood Pressure 112/63 06/15/24 14:39 Pulse Oximetry 99 06/15/24 14:39 Oxygen Delivery Room Air 06/15/24 14:39 Temperature 36.8 C 06/15/24 14:39 Pulse Rate 70 06/15/24 14:39 Respiratory Rate 18 06/15/24 14:39 Blood Pressure 112/63 06/15/24 14:39 Pulse Oximetry 99 06/15/24 14:39 Oxygen Delivery Room Air 06/15/24 14:39 Vital signs reviewed MDM - Back Pain/Injury MDM Narrative Medical decision making narrative: At the time of visit patient is resting comfortably on the exam table. Patient appears to be nontoxic. Labs: Urinalysis is negative for any sign of blood, infection, or protein. Plan: I suspect patient has muscles strain/spasm to the low back. Prescription for cyclobenzaprine and naproxen was sent to pharmacy. Supportive measures were discussed with the patient and they voiced understanding discharge instructions and agrees to treatment plan. Return precautions reviewed Differential Diagnosis Differential diagnosis: Likely lumbar radiculopathy, sciatica, strain of lumbar region and other (UTI, STI, constipation) Discharge Plan Discharge Clinical Impression: Strain of muscle, fascia and tendon of lower back, initial encounter Patient Disposition: Home, Self-Care Condition: Stable Instructions: Antibiotic Form, Muscle Strain (ED) Additional Instructions: Urinalysis is negative for any blood, infection, or protein. Take any prescription medication only as prescribed-naproxen and Flexeril Be mindful of sedation precautions given to you if taking a muscle relaxer. May use heat or ice to the affected area Consider massage or chiropractor adjustment if this was discussed with provider May use blue emu, lidocaine patches, or asper cream to affected area- do not apply heat or ice directly over cream- can cause burn. Complete appropriate back stretching exercises. Follow up with your PCP in 3-5 days if symptom persist. Prescriptions: New cyclobenzaprine 10 mg tablet 10 mg PO Q8H PRN (Reason: muscle spasm) 7 Days Qty: 21 0RF naproxen 500 mg tablet 500 mg PO BID PRN (Reason: pain) 7 Days Qty: 14 0RF No Action escitalopram oxalate 10 mg tablet 10 mg DIRECTED Follow-up/Referrals: UNKNOWN,DOCTOR [Primary Care Provider] - Time of Disposition: 14:58 Quality NIHSS Nursing Documentation ED NIHSS nursing documentation: reviewed/agree
[2024-06-15 15:01] LABS: EDUAAPPEAR Clear; EDUABILI Negative (Negative); EDUABLOOD Negative (Negative); EDUACOLOR1 Yellow; EDUAGLUCOSE Negative (Negative); EDUAKETONE Negative (Negative); EDUALEUKO Negative (Negative); EDUANITRATE Negative (Negative); EDUAPH 5.5; EDUAPROTEIN Negative (Negative); EDUAUROBILI 0.2
== END 2024-06-15 15:03 | disposition home or self-care (01) ==
PROVIDERS: Emergency Provider Nurse Practitioner Family
DX: S39.012A Strain of muscle, fascia and tendon of lower back, initial encounter (principal); X58.XXXA Exposure to other specified factors, initial encounter; F41.9 Anxiety disorder, unspecified
CPT/HCPCS: 81003; 99213; G0463

== ENCOUNTER 2025-07-03 12:00 | Emergency (ER) | payer BC, SELFPAY ==
[2025-07-03 12:08] VITALS: BP 115/74; PULSE 69; RESP 18; TEMP 36.6; O2SAT 98
--- NOTE | 2025-07-03 12:19 | ED.BACK ---
HPI - Back Pain/Injury General Chief Complaint: Back Pain/Injury Stated Complaint: Lower Back Pain Time Seen by Provider: 07/03/25 12:00 Source: patient Mode of arrival: ambulatory Limitations: no limitations History of Present Illness HPI Narrative: patient is a 44-year-old female who presents with left lower back pain that radiates down left leg. States it started 3 days ago in her low back and felt a pop when her boyfriend was giving her a back rub. Now reports pain has worsened and is shooting down left leg. Denies any numbness, tingling or weakness. Denies any loss of bowel or bladder. Denies any fall or trauma. Has tried [id number] pain medication and topical numbing Related Data Home Medications ?Medication ?Instructions ?Recorded ?Confirmed ?Last Taken ?Type escitalopram oxalate 10 mg tablet 10 mg DIRECTED 09/17/23 06/15/24 Unknown History Allergies Allergy/AdvReac Type Severity Reaction Status Date / Time No Known Allergies Allergy Verified 07/03/25 12:06 Review of Systems Review of Systems: All systems reviewed & are unremarkable except as noted in HPI and below Constitutional: Constitutional: Denies body ache(s), Denies chills, Denies fatigue, Denies fever(s), Denies headache(s), Denies malaise and Denies weakness Eyes: Eyes: Denies blurry vision, Denies irritation and Denies loss of vision ENT: Denies otalgia, Denies headache(s), Denies nasal discharge, Denies sinus pain and Denies sore throat Cardiovascular: Cardiovascular: Denies chest pain, Denies irregular heart rhythm and Denies dyspnea Respiratory: Respiratory: Denies dyspnea Gastrointestinal: Gastrointestinal: Denies abdominal pain, Denies melena, Denies hematochezia, Denies diarrhea, Denies nausea and Denies vomiting Musculoskeletal: Musculoskeletal: Reports back pain, Denies myalgias and Denies arthralgias Integumentary/Breasts: Skin/Breast: Denies pruritus and Denies rash Neurologic: Denies headache(s), Denies loss of vision and Denies weakness Psychiatric: Psychiatric: Reports no additional psychiatric complaints Endocrine: Endocrine: Denies fatigue PMFSH Past Medical History Medical History Dilated bile duct Nausea and vomiting in adult Anxiety UTI (urinary tract infection) Surgical History Surgical History History of endometrial ablation Hx of cholecystectomy H/O tubal ligation Family History Family History Other Cerebrovascular accident Social History Social History Smoking status: Never smoker Second hand tobacco smoke exposure: No Alcohol intake: unknown Substance use: never Lack of Transportation: No Lack of Food: Never True Current Housing: I Have Housing Concerned About Future Housing: No Difficulty Paying Gas/Electric Bills: No Difficulty Paying for Meds: No Currently Unemployed: No Education: High School Diploma/GED Difficulty w/ Childcare or Family Care: No Gender identity (if verbalized by the patient): Female Spiritual care concerns: No Comments At time of signature, agree with nursing past medical, surgical, social and family history. There is no relevant family history pertinent to the presenting complaint. Exam Const: General: cooperative, healthy appearing, comfortable, no acute distress and well nourished Nutritional Appearance: well nourished Orientation/consciousness: patient oriented x3 Limitations: no limitations HENMT: Head: normal to inspection, normocephalic and atraumatic Ears: hearing grossly normal bilaterally and external ears normal Face/Nose/Sinus: Normal external nose present, normal facial exam and face symmetric Face and sinus: normal facial exam and face symmetric Mouth: Yes lip normal Eyes: General: appearance normal, both eyes and all related structures Alignment and Position: alignment normal and position normal Periorbital: periorbital findings normal Eyelids: eyelids normal Pupils: Equal, round and reactive pupils present EOM: EOMs intact bilaterally Neck: Neck: normal visual inspection, full ROM and supple Chest: Chest palpation & inspection: normal inspection of the chest Resp: Effort & Inspection: normal respiratory effort and able to speak in complete sentences Auscultation: clear to auscultation bilaterally Cardio: Rate: regular rate Rhythm: regular rhythm Heart sounds: S1 normal heart sound present and S2 normal heart sound present GI: Inspection: normal to inspection Back/Spine/Pelvis: Thoracic/Lumbar Spine: thoracic and lumbar spine normal to inspection, pain with thoraco-lumbar ROM, paraspinal muscle tenderness on the left in the lower lumbar, No thoracic spinal tenderness and No lumbar spinal tenderness Sacroiliac joints: on the left tender to palpation Skin: General skin exam: normal color and no rashes or lesions noted Neuro: General: patient oriented x3 and moves all extremities Cranial nerves: Yes Equal, round and reactive pupils present Speech: normal speech Gait exam (Neuro): Normal gait present Extrem: General: normal to inspection, full ROM and no edema Psych: Appearance: grossly normal and well kempt Mental Status: mental status grossly normal Speech and movement: Normal speech and movement present Affect: normal affect Attitude: cooperative Thought process: Normal thought process present Course Course Emergency Course: Patient is aware of diagnosis, understands and agrees to treatment plan. Anticipatory guidance given. Patient agrees to follow-up as directed and is aware of reasons to seek care at the emergency department. Portions of this record may have been created with voice recognition software Level of Care: Express Care Visit Vital Signs Vital signs: Vital Signs Temperature 36.6 C 07/03/25 12:08 Pulse Rate 69 07/03/25 12:08 Respiratory Rate 18 07/03/25 12:08 Blood Pressure 115/74 07/03/25 12:08 Pulse Oximetry 98 07/03/25 12:08 Oxygen Delivery Room Air 07/03/25 12:08 Temperature 36.6 C 07/03/25 12:08 Pulse Rate 69 07/03/25 12:08 Respiratory Rate 18 07/03/25 12:08 Blood Pressure 115/74 07/03/25 12:08 Pulse Oximetry 98 07/03/25 12:08 Oxygen Delivery Room Air 07/03/25 12:08 Reviewed MDM - Back Pain/Injury MDM Narrative Medical decision making narrative: No risk factors or findings concerning for epidural abscess, diskitis, vertebral osteomyelitis, cord compression, cauda equina, vertebral fracture or bone malignancy, AAA, or pyelonephritis. Patient instructed to consider further imaging and workup through their primary care physician as an outpatient if symptoms persist. Pt well hydrated appearing, in no respiratory distress, hemodynamically stable. Recommend supportive care. The patient is stable at time of discharge the clinical impression was discussed and the patient was given the opportunity to ask questions, which were addressed as completely as possible given the information available at present. Anticipatory guidance and return to care precautions were discussed and the importance of primary care follow-up was stressed and encouraged. The patient voiced understanding of the plan, indications to return, and the need for follow-up. Exam findings show no acute concerns or changes Patient is appropriate for outpatient treatment and follow-up. Differential Diagnosis Differential diagnosis: Likely lumbar radiculopathy, sciatica and strain of lumbar region Medical Records Attestation: I reviewed the patient's medical records. Discharge Plan Discharge Clinical Impression: Sciatica Qualifiers: Laterality: left Qualified Code(s): M54.32 - Sciatica, left side Patient Disposition: Home Condition: Stable Instructions: Sciatica (ED) Additional Instructions: take steroids in the morning with food, take muscle relaxers every 8 hours as needed for muscle spasm. do not drive or make any important decisions while on this medication for it can make you drowsy Exercise:Combine aerobic exercise, like walking or swimming, with specific exercises to keep the muscles in your back and abdomen strong and flexible.bed rest is not recommended. Proper Lifting:Be sure to lift heavy items with your legs, not your back. Do not bend over to pick something up. Keep your back straight and bend at your knees. Weight:Maintain a healthy weight. Being overweight puts added stress on your lower back. Avoid Smoking:Both the smoke and the nicotine cause your spine to age faster than normal. Proper Posture:Good posture is important for avoiding future problems. A therapist can teach you how to safely stand, sit, and lift. Use warm moist heat or ice to help with pain. Follow up with Primary provider in 2-3 days, This may become a chronic condition and they will be the one to help manage your pain and order additional testing. Follow-up with your doctor for further care and evaluation or seek ER if you develop problems with bladder/bowel function, weakness or loss of feeling in one or both of your legs. Patient Language: Ecuadorean Prescriptions: New prednisone 20 mg tablet 40 mg PO DAILY 5 Days Qty: 10 0RF baclofen 10 mg tablet 10 mg PO TID 5 Days Qty: 15 0RF No Action escitalopram oxalate 10 mg tablet 10 mg DIRECTED cyclobenzaprine 10 mg tablet 10 mg PO Q8H PRN (Reason: muscle spasm) 7 Days Qty: 21 0RF naproxen 500 mg tablet 500 mg PO BID PRN (Reason: pain) 7 Days Qty: 14 0RF Follow-up/Referrals: Ricki Friedman MD [Physician, Family Practice] - 3 Days Stand Alone Forms: Work/School Release IP Time of Disposition: 12:21
== END 2025-07-03 12:25 | disposition home or self-care (01) ==
PROVIDERS: Emergency Provider Nurse Practitioner Family
DX: M54.32 Sciatica, left side (principal); F41.9 Anxiety disorder, unspecified
CPT/HCPCS: 99213; G0463